=== PATIENT | female | born 1945 | race American Indian/Alaskan Native ===

== ENCOUNTER 2017-03-19 15:46 | Emergency (ER) | payer MEDICARE ==
[2017-03-19] MEDS ORDERED: NACL 0.9% 500 ML 500 ML ONE (17:30)
[2017-03-20] MEDS ORDERED: CATAPRES ONE (00:31)
[2017-03-20] MEDS: CATAPRES PO ONE (00:40)
[2017-03-20 01:44] LABS: Anion Gap 15 mmol/L; Blood Urea Nitrogen 12 mg/dL (7-17); Calcium 9.4 mg/dL (8.4-10.2); Carbon Dioxide 29 mmol/L (22-30); Glucose 103 mg/dL (65-100); Sodium 139 mmol/L (137-145)
--- NOTE | 2017-03-20 01:50 | Cat Scan Report ---
FINAL REPORT PROCEDURE: CT HEAD/BRAIN WO CON TECHNIQUE: Computerized tomography of the head was performed without contrast material. HISTORY: HTN, Dizzy, arm back pain COMPARISON: 03/15/2015 FINDINGS: Skull and scalp: Normal. Paranasal sinuses: Normal. Ventricles and subarachnoid spaces: Normal. Cerebrum: There is no evidence of acute intracranial hemorrhage, hematoma, infarction midline displacement. There is a small 7 millimeter extra-axial density in the lateral right temporal region, this has not changed significantly since prior study. A small meningioma is possible in this region.. Cerebellum and brainstem: No evidence of hemorrhage, acute infarction or mass. Vasculature: Normal. Comments: None. IMPRESSION: There is no evidence of an acute intracranial process. 7 millimeter extra-axial hyper attenuated density in the lateral right temporal region most consistent with a small meningioma, this has not changed since prior study.
[2017-03-20 01:52] LABS: INR 0.98 (0.87-1.13)
[2017-03-20 01:53] LABS: Partial Thromboplastin Time 30.7 Sec. (24.2-36.6)
[2017-03-20 02:38] LABS: Basophils % (Auto) 0.6 % (0.0-1.8); Eosinophils % (Auto) 1.5 % (0.0-4.3); Hematocrit 39.1 % (30.3-42.9); Hemoglobin 12.9 gm/dl (10.1-14.3); Mean Corpuscular HGB Conc 33 % (30-34); Mean Corpuscular Hemoglobin 29 pg (28-32); Mean Corpuscular Volume 86 fl (79-97); Platelet Count 206 K/mm3 (140-440); Red Blood Count 4.52 M/mm3 (3.65-5.03); Red Cell Distribution Width 13.8 % (13.2-15.2); White Blood Count 4.3 K/mm3 (4.5-11.0)
--- NOTE | 2017-03-20 04:18 | Emergency Department Report ---
ED Dizziness HPI - General Chief Complaint: High BP Stated Complaint: ELEVATED BP/L ARM PAIN/DIZZINESS Time Seen by Provider: 03/20/17 03:34 Source: patient Mode of arrival: Ambulatory Limitations: No Limitations - History of Present Illness Initial Comments: Vision is a 71-year-old female with a history of hypertension presenting to the ER from her PMDs office for evaluation of hypertension. Patient reports for the last 3 days her blood pressures have been running high near systolic of 200 and she reports while bowling she had a bit of unsteady gait and lightheadedness. The patient has no complaints. Patient takes Norvasc 10 mg daily and metoprolol 25 mg by mouth twice a day. No changes in medications reported. Otherwise no fevers chills nausea vomiting or visual changes hearing changes falls shortness of breath chest pain abdominal pain and travel or sick contacts. MD Complaint: lightheadedness - Related Data Previous Rx's Medication Instructions Recorded Last Taken Type amLODIPine [Norvasc] 10 mg PO DAILY #30 tab 03/16/15 08/26/16 Rx traMADol [Ultram] 50 mg PO Q4HR PRN #20 tablet 08/27/16 Unknown Rx Allergies Allergy/AdvReac Type Severity Reaction Status Date / Time Sulfa (Sulfonamide Allergy Hives Verified 03/08/15 00:53 Antibiotics) ED Review of Systems ROS: Stated complaint: ELEVATED BP/L ARM PAIN/DIZZINESS Other details as noted in HPI ED Past Medical Hx - Past Medical History Previous Medical History?: Yes Hx Hypertension: Yes Additional medical history: scleraderma. brain tumor. elevated cholesterol - Surgical History Past Surgical History?: Yes Hx Appendectomy: Yes Additional Surgical History: hysterectomy. tubal ligation. bladder tack - Social History Smoking Status: Never Smoker Substance Use Type: None - Medications Home Medications: Home Medications Medication Instructions Recorded Confirmed Last Taken Type amLODIPine [Norvasc] 10 mg PO DAILY #30 tab 03/16/15 08/27/16 08/26/16 Rx traMADol [Ultram] 50 mg PO Q4HR PRN #20 tablet 08/27/16 Unknown Rx ED Physical Exam - General Limitations: No Limitations ED Course Vital Signs 03/19/17 03/20/17 03/20/17 15:54 00:26 00:40 Temperature 98.0 F 97.9 F Pulse Rate 75 74 74 Respiratory 22 12 Rate Blood Pressure 186/116 198/131 191/126 Blood Pressure [Left] O2 Sat by Pulse 99 99 Oximetry 03/20/17 02:15 Temperature Pulse Rate 86 Respiratory 16 Rate Blood Pressure Blood Pressure 132/88 [Left] O2 Sat by Pulse 97 Oximetry ED Medical Decision Making - Lab Data Result diagrams: 03/20/17 01:10 03/20/17 01:10 - EKG Data -: EKG Interpreted by Md ([id number]) EKG shows normal: sinus rhythm, axis (normal axis), intervals (QTC 427 ms Q waves in leads V2), QRS complexes, ST-T waves (isolated T-wave inversion in lead III, no ST-T changes, no STEMI) Rate: normal (70 bpm) - Radiology Data Radiology results: report reviewed CT head: No acute intracranial process, patient has a stable 7 mm meningioma seen on prior CT. - Medical Decision Making Results discussed with patient. Patient blood pressure has stabilized on its own without intervention. Case discussed with patient she is to follow-up with her PMD for possible medication changes and further monitoring. Discussed with patient on how to maintain a BP log and to bring that to her PMD. Critical care attestation.: If time is entered above; I have spent that time in minutes in the direct care of this critically ill patient, excluding procedure time. ED Disposition Clinical Impression: Hypertension, Lightheadedness Disposition: DISCHARGED TO HOME OR SELFCARE Is pt being admited?: No Condition: Stable Instructions: Hypertension (ED) Referrals: DUSTIN HECTOR MD [Primary Care Provider] - 3-5 Days
[2017-03-20 04:27] VITALS: BP 155/89
== END 2017-03-20 04:34 | disposition home or self-care (01) ==
LOC: ED 15:46
DX: I10 Essential (primary) hypertension (principal); R42 Dizziness and giddiness
CPT/HCPCS: 36415; 70450; 80048; 84484; 85025; 85610; 85730; 93005; 93010; 99285; J7040

== ENCOUNTER 2017-06-28 13:27 | Emergency (ER) | payer MEDICARE ==
[2017-06-28 13:58] VITALS: BP 151/81
[2017-06-28 14:21] LABS: Basophils % (Auto) 0.6 % (0.0-1.8); Eosinophils % (Auto) 0.8 % (0.0-4.3); Hematocrit 36.6 % (30.3-42.9); Hemoglobin 12.4 gm/dl (10.1-14.3); Mean Corpuscular HGB Conc 34 % (30-34); Mean Corpuscular Hemoglobin 29 pg (28-32); Mean Corpuscular Volume 86 fl (79-97); Platelet Count 238 K/mm3 (140-440); Red Blood Count 4.24 M/mm3 (3.65-5.03); Red Cell Distribution Width 14.4 % (13.2-15.2); White Blood Count 6.2 K/mm3 (4.5-11.0)
--- NOTE | 2017-06-28 14:29 | XRay Report ---
CHEST 2 VIEWS INDICATION: Cough for 3 weeks. COMPARISON: 03/16/2015. FINDINGS: PA and lateral chest radiographs demonstrate normal cardiomediastinal silhouette. Clear lungs. Intact bones. CONCLUSION: No acute disease in the chest. Thank you for the opportunity to participate in this patient's care.
[2017-06-28 14:41] LABS: Anion Gap 17 mmol/L; Blood Urea Nitrogen 16 mg/dL (7-17); Calcium 9.4 mg/dL (8.4-10.2); Carbon Dioxide 29 mmol/L (22-30); Chloride 99.2 mmol/L (98-107); Glucose 110 mg/dL (65-100); Potassium 3.8 mmol/L (3.6-5.0); Sodium 141 mmol/L (137-145)
[2017-06-28 14:58] LABS: Mucus,Urine FEW /HPF
[2017-06-28 15:04] LABS: Bilirubin,Urine Negative (Negative); Blood,Urine Negative (Negative); Ketones,Urine Negative (Negative)
[2017-06-28 15:05] LABS: Leukocyte Esterase,Urine Negative (Negative); Nitrite,Urine Negative (Negative)
--- NOTE | 2017-06-30 01:05 | ED Elopement Review ---
ED Pt Elopement review - Results review Lab results: Laboratory Tests 06/28/17 06/28/17 06/28/17 14:01 14:05 14:05 WBC 6.2 RBC 4.24 Hgb 12.4 Hct 36.6 MCV 86 MCH 29 MCHC 34 RDW 14.4 Plt Count 238 Lymph % (Auto) 28.5 [place] % (Auto) 9.0 H Eos % (Auto) 0.8 Baso % (Auto) 0.6 Lymph # 1.8 [place]pson # 0.6 Eos # 0.1 Baso # 0.0 Seg Neutrophils % 61.1 Seg Neutrophils # 3.8 Sodium 141 Potassium 3.8 Chloride 99.2 Carbon Dioxide 29 Anion Gap 17 BUN 16 Creatinine 0.8 Estimated GFR > 60 BUN/Creatinine Ratio 20.00 Glucose 110 H Calcium 9.4 Urine Color Straw Urine Turbidity Hazy Urine pH 5.0 Ur Specific [place] 1.035 H Urine Protein 30 mg/dl Urine Glucose (UA) Negative Urine Ketones Negative Urine Blood Negative Urine Nitrite Negative Ur Reducing Substances Not Reportable Urine Bilirubin Negative Urine Ictotest Not Reportable Urine Urobilinogen 0.0 Ur Leukocyte Esterase Negative Urine WBC (Auto) 3.0 Urine RBC (Auto) 6.0 U Epithel Cells (Auto) 2.0 Urine Mucus Few - Call Back decision Pt Call Back Decision: No action required
== END 2017-06-28 22:15 | disposition left against medical advice (07) ==
LOC: ED 13:27
DX: R53.83 Other fatigue (principal); R50.9 Fever, unspecified; Z53.21 Procedure and treatment not carried out due to patient leaving prior to being seen by health care provider
CPT/HCPCS: 36415; 71020; 80048; 81001; 85025

== ENCOUNTER 2017-10-31 04:22 | Inpatient (IN) | payer MEDICARE, OTHER ==
--- NOTE | 2017-10-31 05:08 | XRay Report ---
FINAL REPORT EXAM: XR CHEST ROUTINE 2V HISTORY: productive cough x1 week TECHNIQUE: PA and lateral views of the chest were submitted. FINDINGS: The lungs are clear. Pleural fluid is not seen. The heart size is normal. The thoracic aorta is mildly tortuous. The bones and soft tissues do not show any acute changes. IMPRESSION: No active chest disease.
[2017-10-31 06:21] LABS: Alanine Aminotransferase 15 units/L (7-56); Albumin 4.4 g/dL (3.9-5); Albumin/Globulin Ratio 1.3 %; Alkaline Phosphatase 82 units/L (35-129); Anion Gap 16 mmol/L; BUN/Creatinine Ratio 22; Blood Urea Nitrogen 13 mg/dL (7-17); Calcium 9.3 mg/dL (8.4-10.2); Carbon Dioxide 26 mmol/L (22-30); Chloride 98.2 mmol/L (98-107); Glucose 107 mg/dL (65-100); Potassium 4.2 mmol/L (3.6-5.0); Sodium 136 mmol/L (137-145); Total Protein 7.8 g/dL (6.3-8.2)
[2017-10-31 07:12] LABS: Basophils % (Auto) 0.5 % (0.0-1.8); Eosinophils % (Auto) 1.5 % (0.0-4.3); Hematocrit 34.7 % (30.3-42.9); Hemoglobin 11.8 gm/dl (10.1-14.3); Mean Corpuscular HGB Conc 34 % (30-34); Mean Corpuscular Hemoglobin 31 pg (28-32); Mean Corpuscular Volume 91 fl (79-97); Platelet Count 199 K/mm3 (140-440); Red Blood Count 3.82 M/mm3 (3.65-5.03); Red Cell Distribution Width 13.8 % (13.2-15.2); White Blood Count 4.6 K/mm3 (4.5-11.0)
[2017-10-31] MEDS ORDERED: ATROVENT IH ONE (10:41)
[2017-10-31] MEDS ORDERED: PROVENTIL IH ONE (10:41)
[2017-10-31] MEDS ORDERED: TYLENOL PO ONE (10:41)
[2017-10-31] MEDS ORDERED: FLONASE NS ONE (10:41)
[2017-10-31] MEDS ORDERED: NACL 0.9% 500 ML 500 ML IV ONE (10:43)
--- NOTE | 2017-10-31 10:43 | Emergency Department Report ---
ED General Adult HPI - General Chief complaint: Upper Respiratory Infection Stated complaint: CHEST COLD Time Seen by Provider: 10/31/17 10:33 Source: patient, RN notes reviewed, old records reviewed Mode of arrival: Ambulatory Limitations: No Limitations - History of Present Illness Initial comments: This is a 71-year-old female. . She has a past medical history of hypertension, reports scleroderma, "brain tumor", elevated cholesterol, retention. Primary care doctor is Dr. Alvarado Patient presents to the ER with cough. Patient reports that 2 weeks ago she had some nausea, vomiting and diarrhea. This was accompanied by chest wall tightness with associated nausea and vomiting. This was going on for 2 weeks. Patient reports now facial fullness, cough, and dizziness last night. The dizziness lasted for around 3 hours. Patient reports that her dizziness was a sensation of unsteady gait and subjective ataxia. This has since resolved. It did not have exacerbating or relieving factors and It did not radiate anywhere. -: Gradual, Sudden Location: head, chest Severity scale (0 -10): 4 Quality: aching Consistency: intermittent Improves with: none Worsens with: none Associated Symptoms: confusion, chest pain, cough, headaches, loss of appetite, nausea/vomiting, shortness of breath, weakness - Related Data Previous Rx's Medication Instructions Recorded Last Taken Type amLODIPine [Norvasc] 10 mg PO DAILY #30 tab 03/16/15 08/26/16 Rx traMADol [Ultram] 50 mg PO Q4HR PRN #20 tablet 08/27/16 Unknown Rx Allergies Allergy/AdvReac Type Severity Reaction Status Date / Time Sulfa (Sulfonamide Allergy Hives Verified 10/31/17 10:46 Antibiotics) ED Review of Systems ROS: Stated complaint: CHEST COLD Other details as noted in HPI ED Past Medical Hx - Past Medical History Previous Medical History?: Yes Hx Hypertension: Yes Additional medical history: scleraderma. brain tumor. elevated cholesterol - Surgical History Past Surgical History?: Yes Hx Appendectomy: Yes Additional Surgical History: hysterectomy. tubal ligation. bladder tack - Social History Smoking Status: Never Smoker - Medications Home Medications: Home Medications Medication Instructions Recorded Confirmed Last Taken Type amLODIPine [Norvasc] 10 mg PO DAILY #30 tab 03/16/15 08/27/16 08/26/16 Rx traMADol [Ultram] 50 mg PO Q4HR PRN #20 tablet 08/27/16 Unknown Rx ED Physical Exam - General Limitations: No Limitations General appearance: alert, in no apparent distress - Head Head exam: Present: atraumatic, normocephalic - Eye Eye exam: Present: normal appearance, PERRL, EOMI, other (visual acuity intact to finger counting, color perception, reading at a close distance). Absent: nystagmus - ENT ENT exam: Present: normal exam, normal orophraynx, mucous membranes moist, TM's normal bilaterally, normal external ear exam - Neck Neck exam: Present: normal inspection, full ROM, other (there is no carotid bruit. There is no carotid thrill.). Absent: tenderness, meningismus - Respiratory Respiratory exam: Present: wheezes. Absent: respiratory distress, chest wall tenderness - Cardiovascular Cardiovascular Exam: Present: regular rate, normal rhythm, normal heart sounds. Absent: systolic murmur, diastolic murmur, rubs, gallop - GI/Abdominal GI/Abdominal exam: Present: soft, normal bowel sounds. Absent: distended, tenderness, guarding, rebound, rigid, pulsatile mass - Extremities Exam Extremities exam: Present: normal inspection, full ROM, normal capillary refill. Absent: pedal edema, joint swelling, calf tenderness - Back Exam Back exam: Present: normal inspection, full ROM. Absent: paraspinal tenderness , vertebral tenderness - Neurological Exam Neurological exam: Present: alert, oriented X3, CN II-XII intact, normal gait, other (Extraocular movements intact. Tongue midline. No facial droop. Facial sensation intact to light touch in the V1, V2, V3 distribution bilaterally. 5 and 5 strength in 4 extremities.. Sensation is intact to light touch in 4 extremities.). Absent: motor sensory deficit - Psychiatric Psychiatric exam: Present: normal affect, normal mood - Skin Skin exam: Present: warm, dry, intact, normal color. Absent: rash ED Course Vital Signs 10/31/17 10/31/17 10/31/17 04:40 08:49 09:01 Temperature 98.2 F Pulse Rate 75 72 70 Respiratory 16 16 13 Rate Blood Pressure 167/101 160/93 Blood Pressure 165/102 [Left] O2 Sat by Pulse 100 100 99 Oximetry 10/31/17 10/31/17 10/31/17 09:30 10:05 10:30 Temperature Pulse Rate 74 78 Respiratory 12 22 22 Rate Blood Pressure 158/94 158/94 141/84 Blood Pressure [Left] O2 Sat by Pulse 100 99 100 Oximetry 10/31/17 10/31/17 10/31/17 11:09 12:59 13:00 Temperature Pulse Rate 96 H Respiratory 21 Rate Blood Pressure 158/94 133/79 133/79 Blood Pressure [Left] O2 Sat by Pulse 99 99 100 Oximetry 10/31/17 13:30 Temperature Pulse Rate 87 Respiratory 14 Rate Blood Pressure 133/70 Blood Pressure [Left] O2 Sat by Pulse 100 Oximetry - Reevaluation(s) Reevaluation #1: 10/31/17 12:42 Differential diagnosis, including but not limited to labyrinthitis, rhonchi this , transient ischemic attack, pneumonia, pneumonitis, costochondritis, posterior circulation dissection Assessment and plan: 71-year-old female with subjective ataxia which has since resolved. Also reports recent cold and viral symptoms. EKG abnormal, no recent ACS risk stratification, did complain of chest pressure and tightness, currently CT angiogram not available secondary to equipment issues. Patient has a GCS of 15, with an NIH score of 0, and has no neck pain and has a normal neurologic examination. Given normal neurologic examination at this time, patient is not a TPA candidate, and furthermore given that she has normal exam, I do not believe that she requires an emergent MRI, MR angiogram of the head and neck. Patient was given albuterol Atrovent and steroids for probable bronchitis, and she will be admitted for ACS risk stratification and TIA evaluation. Noncontrast CT scan of the brain is pending. Reevaluation #2: 10/31/17 14:09 CT scan of the brain is negative. Aspirin is ordered. Wheezing improved. Case presented to the Hospital physician, Dr. Donnelly, who accepted the patient to the medical service. ED Medical Decision Making - Lab Data Result diagrams: 10/31/17 06:45 10/31/17 04:56 Vital Signs 10/31/17 10/31/17 10/31/17 04:40 08:49 09:01 Temperature 98.2 F Pulse Rate 75 72 70 Respiratory 16 16 13 Rate Blood Pressure 167/101 160/93 Blood Pressure 165/102 [Left] O2 Sat by Pulse 100 100 99 Oximetry 10/31/17 10/31/17 10/31/17 09:30 10:05 10:30 Temperature Pulse Rate 74 78 Respiratory 12 22 22 Rate Blood Pressure 158/94 158/94 141/84 Blood Pressure [Left] O2 Sat by Pulse 100 99 100 Oximetry 10/31/17 11:09 Temperature Pulse Rate Respiratory Rate Blood Pressure 158/94 Blood Pressure [Left] O2 Sat by Pulse 99 Oximetry Lab Results 10/31/17 10/31/17 Range/Units 04:56 06:45 WBC 4.6 (4.5-11.0) K/mm3 RBC 3.82 (3.65-5.03) M/mm3 Hgb 11.8 (10.1-14.3) gm/dl Hct 34.7 (30.3-42.9) % MCV 91 (79-97) fl MCH 31 (28-32) pg MCHC 34 (30-34) % RDW 13.8 (13.2-15.2) % Plt Count 199 (140-440) K/mm3 Lymph % (Auto) 34.4 (13.4-35.0) % [place] % (Auto) 9.7 H (0.0-7.3) % Eos % (Auto) 1.5 (0.0-4.3) % Baso % (Auto) 0.5 (0.0-1.8) % Lymph # 1.6 (1.2-5.4) K/mm3 [place] # 0.4 (0.0-0.8) K/mm3 Eos # 0.1 (0.0-0.4) K/mm3 Baso # 0.0 (0.0-0.1) K/mm3 Seg Neutrophils % 53.9 (40.0-70.0) % Seg Neutrophils # 2.5 (1.8-7.7) K/mm3 Sodium 136 L (137-145) mmol/L Potassium 4.2 (3.6-5.0) mmol/L Chloride 98.2 (98-107) mmol/L Carbon Dioxide 26 (22-30) mmol/L Anion Gap 16 mmol/L BUN 13 (7-17) mg/dL Creatinine 0.6 L (0.7-1.2) mg/dL Estimated GFR > 60 ml/min BUN/Creatinine Ratio 22 % Glucose 107 H (65-100) mg/dL Calcium 9.3 (8.4-10.2) mg/dL Total Bilirubin 0.50 (0.1-1.2) mg/dL AST 21 (5-40) units/L ALT 15 (7-56) units/L Alkaline Phosphatase 82 (35-129) units/L Troponin T < 0.010 (0.00-0.029) ng/mL Total Protein 7.8 (6.3-8.2) g/dL Albumin 4.4 (3.9-5) g/dL Albumin/Globulin Ratio 1.3 % - EKG Data 10/31/17 12:47 Normal sinus, 73 bpm, normal axis, normal intervals, T-wave inversions in lead 3 , poor R-wave progression, abnormal EKG, unchanged from prior from March 2017. - Radiology Data Radiology results: report reviewed, image reviewed interpreted by me: X-ray of the chest is negative Critical care attestation.: If time is entered above; I have spent that time in minutes in the direct care of this critically ill patient, excluding procedure time. ED Disposition Clinical Impression: Chest pain, Ataxia, Bronchitis Disposition: OP ADMIT IP TO THIS HOSP Is pt being admited?: Yes Does the pt Need Aspirin: Yes Condition: Good Instructions: Chest Pain (ED), Chronic Bronchitis (ED) Referrals: JORGE MARQUIS MD [Primary Care Provider] - 3-5 Days
--- NOTE | 2017-10-31 14:00 | Cat Scan Report ---
CT HEAD WITHOUT CONTRAST: HISTORY: Resolved dizziness. Serial contiguous axial images were obtained through the cranium. Intravenous contrast material was not administered. The ventricles are normal in size and appearance. There is no mass effect or midline shift. No areas of abnormally increased or decreased attenuation are seen. No mass lesion is seen. Large mucus retention cyst in the left maxillary sinus and mild mucosal thickening in the left sphenoid sinus are noted. The remaining sinuses and mastoid air cells are clear. IMPRESSION: Cranial CT scan within normal limits. Sinus disease as described, chronic.
[2017-10-31] MEDS ORDERED: BABY ASPIRIN PO ONE (14:09)
[2017-10-31] MEDS ORDERED: ULTRAM PO PRN (15:15)
--- NOTE | 2017-10-31 15:15 | History and Physical Report ---
History of Present Illness Date of examination: 10/31/17 Date of admission: 10/31/17 Chief complaint: CC Chest tightness 1 wek History of present illness: LAC DU FLAMBE[place] 71 y/o female presents to the ER with cough accompanied by chest wall tightness with associated nausea and vomiting. This was going on for 2 weeks. Patient reports now facial fullness, cough, and dizziness last night. The dizziness lasted for around 3 hours. Patient reports that her dizziness was a sensation of unsteady gait and subjective ataxia. This has since resolved. It did not have exacerbating or relieving factors and It did not radiate anywhere. Past Medical History Previous Medical History?: Yes Hx Hypertension: Yes Additional medical history: scleraderma. brain tumor. elevated cholesterol Surgical History Past Surgical History?: Yes Hx Appendectomy: Yes Additional Surgical History: hysterectomy. tubal ligation. bladder tack Social History Smoking Status: Never Smoker Medications Home Medications: Home Medications Medication Instructions Recorded Confirmed Last Taken Type amLODIPine [Norvasc] 10 mg PO DAILY #30 tab 03/16/15 08/27/16 08/26/16 Rx traMADol [Ultram] 50 mg PO Q4HR PRN #20 tablet 08/27/16 Unknown Rx ROS: Stated complaint: CHEST COLD Other details as noted in HPI Medications and Allergies Allergies Allergy/AdvReac Type Severity Reaction Status Date / Time Sulfa (Sulfonamide Allergy Hives Verified 10/31/17 10:46 Antibiotics) Home Medications Medication Instructions Recorded Confirmed Last Taken Type amLODIPine [Norvasc] 10 mg PO DAILY #30 tab 03/16/15 10/31/17 10/30/17 Rx guaiFENesin ER [Mucinex ER] 600 mg PO Q12H 10/31/17 10/31/17 10/30/17 History Exam - Constitutional Vitals: Temp Pulse Resp BP Pulse Ox 98.2 F 96 H 15 124/103 100 10/31/17 04:40 10/31/17 14:30 10/31/17 14:30 10/31/17 14:30 10/31/17 14:30 General appearance: Present: no acute distress, well-nourished - EENT Eyes: Present: PERRL ENT: hearing intact, clear oral mucosa - Neck Neck: Present: supple, normal ROM - Respiratory Respiratory effort: normal Respiratory: bilateral: CTA - Cardiovascular Heart rate: 80 Rhythm: regular Heart Sounds: Present: S1 & S2. Absent: rub, click - Extremities Extremities: no ischemia, pulses intact, pulses symmetrical, No edema Peripheral Pulses: within normal limits - Abdominal General gastrointestinal: Present: soft, non-tender, non-distended, normal bowel sounds Female genitourinary: Present: normal - Rectal Rectal Exam: deferred - Integumentary Integumentary: Present: clear, warm, dry - Musculoskeletal Musculoskeletal: gait normal, strength equal bilaterally - Psychiatric Psychiatric: appropriate mood/affect, intact judgment & insight - Neurologic Neurologic: CNII-XII intact, moves all extremities - Allied Health Allied health notes reviewed: nursing Results - Labs CBC & Chem 7: 10/31/17 06:45 10/31/17 04:56 Labs: Laboratory Last Values WBC 4.6 K/mm3 (4.5-11.0) 10/31/17 06:45 RBC 3.82 M/mm3 (3.65-5.03) 10/31/17 06:45 Hgb 11.8 gm/dl (10.1-14.3) 10/31/17 06:45 Hct 34.7 % (30.3-42.9) 10/31/17 06:45 MCV 91 fl (79-97) 10/31/17 06:45 MCH 31 pg (28-32) 10/31/17 06:45 MCHC 34 % (30-34) 10/31/17 06:45 RDW 13.8 % (13.2-15.2) 10/31/17 06:45 Plt Count 199 K/mm3 (140-440) 10/31/17 06:45 Lymph % (Auto) 34.4 % (13.4-35.0) 10/31/17 06:45 [place] % (Auto) 9.7 % (0.0-7.3) H 10/31/17 06:45 Eos % (Auto) 1.5 % (0.0-4.3) 10/31/17 06:45 Baso % (Auto) 0.5 % (0.0-1.8) 10/31/17 06:45 Lymph # 1.6 K/mm3 (1.2-5.4) 10/31/17 06:45 [place] # 0.4 K/mm3 (0.0-0.8) 10/31/17 06:45 Eos # 0.1 K/mm3 (0.0-0.4) 10/31/17 06:45 Baso # 0.0 K/mm3 (0.0-0.1) 10/31/17 06:45 Seg Neutrophils % 53.9 % (40.0-70.0) 10/31/17 06:45 Seg Neutrophils # 2.5 K/mm3 (1.8-7.7) 10/31/17 06:45 Sodium 136 mmol/L (137-145) L 10/31/17 04:56 Potassium 4.2 mmol/L (3.6-5.0) 10/31/17 04:56 Chloride 98.2 mmol/L (98-107) 10/31/17 04:56 Carbon Dioxide 26 mmol/L (22-30) 10/31/17 04:56 Anion Gap 16 mmol/L 10/31/17 04:56 BUN 13 mg/dL (7-17) 10/31/17 04:56 Creatinine 0.6 mg/dL (0.7-1.2) L 10/31/17 04:56 Estimated GFR > 60 ml/min 10/31/17 04:56 BUN/Creatinine Ratio 22 % 10/31/17 04:56 Glucose 107 mg/dL (65-100) H 10/31/17 04:56 Calcium 9.3 mg/dL (8.4-10.2) 10/31/17 04:56 Total Bilirubin 0.50 mg/dL (0.1-1.2) 10/31/17 04:56 AST 21 units/L (5-40) 10/31/17 04:56 ALT 15 units/L (7-56) 10/31/17 04:56 Alkaline Phosphatase 82 units/L (35-129) 10/31/17 04:56 Troponin T < 0.010 ng/mL (0.00-0.029) 10/31/17 04:56 Total Protein 7.8 g/dL (6.3-8.2) 10/31/17 04:56 Albumin 4.4 g/dL (3.9-5) 10/31/17 04:56 Albumin/Globulin Ratio 1.3 % 10/31/17 04:56 - Imaging and Cardiology EKG: report reviewed Assessment and Plan Advance Directives: Yes (Full code) VTE prophylaxis?: Chemical Plan of care discussed with patient/family: Yes - Patient Problems (1) Ataxia Current Visit: Yes Status: Acute (2) Chest pain Current Visit: Yes Status: Acute Qualifiers: Chest pain type: unspecified Qualified Code(s): R07.9 - Chest pain, unspecified Plan to address problem: Serial cardiac enzymes and Lexiscan on Nov 02 (3) TIA (transient ischemic attack) Current Visit: Yes Status: Acute Qualifiers: Transient cerebral ischemia type: unspecified Qualified Code(s): G45.9 - Transient cerebral ischemic attack, unspecified Plan to address problem: TIA w/u CDS and MRI (4) HTN (hypertension) Current Visit: Yes Status: Chronic Qualifiers: Hypertension type: essential hypertension Qualified Code(s): I10 - Essential (primary) hypertension Plan to address problem: Cont Amlodipine (5) Bronchitis Current Visit: Yes Status: Acute Plan to address problem: Agatha abx and po prednisone (6) DVT prophylaxis Current Visit: Yes Status: Acute Plan to address problem: On Lovenox
[2017-10-31] MEDS ORDERED: DULCOLAX PR PRN (15:17)
[2017-10-31] MEDS ORDERED: TYLENOL PO PRN (15:17)
[2017-10-31] MEDS ORDERED: ZOFRAN IV PRN (15:17)
[2017-10-31] MEDS ORDERED: MILK OF MAGNESIA PO PRN (15:17)
[2017-10-31] MEDS: NORVASC PO SCH (17:33)
[2017-10-31 18:08] LABS: Creatine Kinase MB 2.5 ng/mL (0.0-4.0)
[2017-10-31 18:10] LABS: Creatine Kinase 293 units/L (30-135)
[2017-10-31 21:15] LABS: Creatine Kinase MB 2.3 ng/mL (0.0-4.0)
[2017-10-31 21:17] LABS: Creatine Kinase 265 units/L (30-135)
[2017-11-01 03:49] LABS: Creatine Kinase 281 units/L (30-135); Creatine Kinase MB 3.1 ng/mL (0.0-4.0)
--- NOTE | 2017-11-01 08:21 | Progress Note ---
Hospitalist Physical - Constitutional Vitals: Temp Pulse Resp BP Pulse Ox 98.5 F 85 20 150/84 96 11/01/17 04:33 11/01/17 04:34 11/01/17 04:33 11/01/17 04:33 11/01/17 04:34 Results - Labs CBC & Chem 7: 10/31/17 06:45 10/31/17 04:56 Labs: Laboratory Last Values WBC 4.6 K/mm3 (4.5-11.0) 10/31/17 06:45 RBC 3.82 M/mm3 (3.65-5.03) 10/31/17 06:45 Hgb 11.8 gm/dl (10.1-14.3) 10/31/17 06:45 Hct 34.7 % (30.3-42.9) 10/31/17 06:45 MCV 91 fl (79-97) 10/31/17 06:45 MCH 31 pg (28-32) 10/31/17 06:45 MCHC 34 % (30-34) 10/31/17 06:45 RDW 13.8 % (13.2-15.2) 10/31/17 06:45 Plt Count 199 K/mm3 (140-440) 10/31/17 06:45 Lymph % (Auto) 34.4 % (13.4-35.0) 10/31/17 06:45 [place] % (Auto) 9.7 % (0.0-7.3) H 10/31/17 06:45 Eos % (Auto) 1.5 % (0.0-4.3) 10/31/17 06:45 Baso % (Auto) 0.5 % (0.0-1.8) 10/31/17 06:45 Lymph # 1.6 K/mm3 (1.2-5.4) 10/31/17 06:45 [place] # 0.4 K/mm3 (0.0-0.8) 10/31/17 06:45 Eos # 0.1 K/mm3 (0.0-0.4) 10/31/17 06:45 Baso # 0.0 K/mm3 (0.0-0.1) 10/31/17 06:45 Seg Neutrophils % 53.9 % (40.0-70.0) 10/31/17 06:45 Seg Neutrophils # 2.5 K/mm3 (1.8-7.7) 10/31/17 06:45 Sodium 136 mmol/L (137-145) L 10/31/17 04:56 Potassium 4.2 mmol/L (3.6-5.0) 10/31/17 04:56 Chloride 98.2 mmol/L (98-107) 10/31/17 04:56 Carbon Dioxide 26 mmol/L (22-30) 10/31/17 04:56 Anion Gap 16 mmol/L 10/31/17 04:56 BUN 13 mg/dL (7-17) 10/31/17 04:56 Creatinine 0.6 mg/dL (0.7-1.2) L 10/31/17 04:56 Estimated GFR > 60 ml/min 10/31/17 04:56 BUN/Creatinine Ratio 22 % 10/31/17 04:56 Glucose 107 mg/dL (65-100) H 10/31/17 04:56 Calcium 9.3 mg/dL (8.4-10.2) 10/31/17 04:56 Total Bilirubin 0.50 mg/dL (0.1-1.2) 10/31/17 04:56 AST 21 units/L (5-40) 10/31/17 04:56 ALT 15 units/L (7-56) 10/31/17 04:56 Alkaline Phosphatase 82 units/L (35-129) 10/31/17 04:56 Total Creatine Kinase 281 units/L (30-135) H 11/01/17 03:12 CK-MB (CK-2) 3.1 ng/mL (0.0-4.0) 11/01/17 03:12 CK-MB (CK-2) Rel Index 1.1 (0-4) 11/01/17 03:12 Troponin T < 0.010 ng/mL (0.00-0.029) 11/01/17 03:12 Total Protein 7.8 g/dL (6.3-8.2) 10/31/17 04:56 Albumin 4.4 g/dL (3.9-5) 10/31/17 04:56 Albumin/Globulin Ratio 1.3 % 10/31/17 04:56
--- NOTE | 2017-11-01 08:31 | Progress Note ---
<JAYLIN GRADY - Last Filed: 11/01/17 13:34> Assessment and Plan Assessment and plan: Patient is a 71 years old female presents to the ER with cough accompanied by chest wall tightness with associated nausea and vomiting. Chest pain EKG normal sinus, no ST elevation or T-wave inversion. Negative cardiac enzyme X3 Start on aspirin Nitroglycerin when necessary Morphine ordered for pain Stress test taken awaiting for the findings Transient ischemic attack CT of the head no acute intracranial process VL Carotid duplex bilateral no evidence of stenosis Hypertension Continue on home antihypertensive pills IV Hyralazine for SBP >160 Closely monitor BP Bronchitis Started on oral azithromycin and oral prednisone Started on guaifenesin oxygen as needed Supportive care Ataxia Resolved DVT prophylaxis On Lovenox History Interval history: Patient denies having chest pain, shortness of breath. She reported coughing with yellow sputum Hospitalist Physical - Constitutional Vitals: Temp Pulse Resp BP Pulse Ox 98.5 F 85 20 150/84 96 11/01/17 04:33 11/01/17 04:34 11/01/17 04:33 11/01/17 04:33 11/01/17 04:34 General appearance: Present: no acute distress - EENT Eyes: Present: PERRL ENT: hearing intact - Neck Neck: Present: supple - Respiratory Respiratory effort: normal Respiratory: bilateral: CTA - Cardiovascular Rhythm: regular Heart Sounds: Present: S1 & S2 - Abdominal General gastrointestinal: soft, non-tender - Integumentary Integumentary: Present: clear, warm, dry - Psychiatric Psychiatric: appropriate mood/affect - Neurologic Neurologic: moves all extremities - Allied Health Allied health notes reviewed: nursing Results - Labs CBC & Chem 7: 10/31/17 06:45 10/31/17 04:56 Labs: Laboratory Last Values WBC 4.6 K/mm3 (4.5-11.0) 10/31/17 06:45 RBC 3.82 M/mm3 (3.65-5.03) 10/31/17 06:45 Hgb 11.8 gm/dl (10.1-14.3) 10/31/17 06:45 Hct 34.7 % (30.3-42.9) 10/31/17 06:45 MCV 91 fl (79-97) 10/31/17 06:45 MCH 31 pg (28-32) 10/31/17 06:45 MCHC 34 % (30-34) 10/31/17 06:45 RDW 13.8 % (13.2-15.2) 10/31/17 06:45 Plt Count 199 K/mm3 (140-440) 10/31/17 06:45 Lymph % (Auto) 34.4 % (13.4-35.0) 10/31/17 06:45 [place] % (Auto) 9.7 % (0.0-7.3) H 10/31/17 06:45 Eos % (Auto) 1.5 % (0.0-4.3) 10/31/17 06:45 Baso % (Auto) 0.5 % (0.0-1.8) 10/31/17 06:45 Lymph # 1.6 K/mm3 (1.2-5.4) 10/31/17 06:45 [place] # 0.4 K/mm3 (0.0-0.8) 10/31/17 06:45 Eos # 0.1 K/mm3 (0.0-0.4) 10/31/17 06:45 Baso # 0.0 K/mm3 (0.0-0.1) 10/31/17 06:45 Seg Neutrophils % 53.9 % (40.0-70.0) 10/31/17 06:45 Seg Neutrophils # 2.5 K/mm3 (1.8-7.7) 10/31/17 06:45 Sodium 136 mmol/L (137-145) L 10/31/17 04:56 Potassium 4.2 mmol/L (3.6-5.0) 10/31/17 04:56 Chloride 98.2 mmol/L (98-107) 10/31/17 04:56 Carbon Dioxide 26 mmol/L (22-30) 10/31/17 04:56 Anion Gap 16 mmol/L 10/31/17 04:56 BUN 13 mg/dL (7-17) 10/31/17 04:56 Creatinine 0.6 mg/dL (0.7-1.2) L 10/31/17 04:56 Estimated GFR > 60 ml/min 10/31/17 04:56 BUN/Creatinine Ratio 22 % 10/31/17 04:56 Glucose 107 mg/dL (65-100) H 10/31/17 04:56 Calcium 9.3 mg/dL (8.4-10.2) 10/31/17 04:56 Total Bilirubin 0.50 mg/dL (0.1-1.2) 10/31/17 04:56 AST 21 units/L (5-40) 10/31/17 04:56 ALT 15 units/L (7-56) 10/31/17 04:56 Alkaline Phosphatase 82 units/L (35-129) 10/31/17 04:56 Total Creatine Kinase 281 units/L (30-135) H 11/01/17 03:12 CK-MB (CK-2) 3.1 ng/mL (0.0-4.0) 11/01/17 03:12 CK-MB (CK-2) Rel Index 1.1 (0-4) 11/01/17 03:12 Troponin T < 0.010 ng/mL (0.00-0.029) 11/01/17 03:12 Total Protein 7.8 g/dL (6.3-8.2) 10/31/17 04:56 Albumin 4.4 g/dL (3.9-5) 10/31/17 04:56 Albumin/Globulin Ratio 1.3 % 10/31/17 04:56 <ANNETTE COLBY - Last Filed: 11/11/17 07:19> Hospitalist Physical - Constitutional Vitals: Temp Pulse Resp BP Pulse Ox 97.9 F 81 20 157/92 96 11/01/17 12:20 11/01/17 14:33 11/01/17 12:20 11/01/17 14:33 11/01/17 12:20 Results - Labs CBC & Chem 7: 10/31/17 06:45 10/31/17 04:56 Labs: Laboratory Last Values WBC 4.6 K/mm3 (4.5-11.0) 10/31/17 06:45 RBC 3.82 M/mm3 (3.65-5.03) 10/31/17 06:45 Hgb 11.8 gm/dl (10.1-14.3) 10/31/17 06:45 Hct 34.7 % (30.3-42.9) 10/31/17 06:45 MCV 91 fl (79-97) 10/31/17 06:45 MCH 31 pg (28-32) 10/31/17 06:45 MCHC 34 % (30-34) 10/31/17 06:45 RDW 13.8 % (13.2-15.2) 10/31/17 06:45 Plt Count 199 K/mm3 (140-440) 10/31/17 06:45 Lymph % (Auto) 34.4 % (13.4-35.0) 10/31/17 06:45 [place] % (Auto) 9.7 % (0.0-7.3) H 10/31/17 06:45 Eos % (Auto) 1.5 % (0.0-4.3) 10/31/17 06:45 Baso % (Auto) 0.5 % (0.0-1.8) 10/31/17 06:45 Lymph # 1.6 K/mm3 (1.2-5.4) 10/31/17 06:45 [place] # 0.4 K/mm3 (0.0-0.8) 10/31/17 06:45 Eos # 0.1 K/mm3 (0.0-0.4) 10/31/17 06:45 Baso # 0.0 K/mm3 (0.0-0.1) 10/31/17 06:45 Seg Neutrophils % 53.9 % (40.0-70.0) 10/31/17 06:45 Seg Neutrophils # 2.5 K/mm3 (1.8-7.7) 10/31/17 06:45 Sodium 136 mmol/L (137-145) L 10/31/17 04:56 Potassium 4.2 mmol/L (3.6-5.0) 10/31/17 04:56 Chloride 98.2 mmol/L (98-107) 10/31/17 04:56 Carbon Dioxide 26 mmol/L (22-30) 10/31/17 04:56 Anion Gap 16 mmol/L 10/31/17 04:56 BUN 13 mg/dL (7-17) 10/31/17 04:56 Creatinine 0.6 mg/dL (0.7-1.2) L 10/31/17 04:56 Estimated GFR > 60 ml/min 10/31/17 04:56 BUN/Creatinine Ratio 22 % 10/31/17 04:56 Glucose 107 mg/dL (65-100) H 10/31/17 04:56 Calcium 9.3 mg/dL (8.4-10.2) 10/31/17 04:56 Total Bilirubin 0.50 mg/dL (0.1-1.2) 10/31/17 04:56 AST 21 units/L (5-40) 10/31/17 04:56 ALT 15 units/L (7-56) 10/31/17 04:56 Alkaline Phosphatase 82 units/L (35-129) 10/31/17 04:56 Total Creatine Kinase 389 units/L (30-135) H 11/01/17 14:15 CK-MB (CK-2) 4.5 ng/mL (0.0-4.0) H 11/01/17 14:15 CK-MB (CK-2) Rel Index 1.1 (0-4) 11/01/17 14:15 Troponin T < 0.010 ng/mL (0.00-0.029) 11/01/17 14:15 Total Protein 7.8 g/dL (6.3-8.2) 10/31/17 04:56 Albumin 4.4 g/dL (3.9-5) 10/31/17 04:56 Albumin/Globulin Ratio 1.3 % 10/31/17 04:56
[2017-11-01 09:47] LABS: Creatine Kinase MB 3.8 ng/mL (0.0-4.0)
[2017-11-01 09:49] LABS: Creatine Kinase 315 units/L (30-135)
[2017-11-01] MEDS ORDERED: MUCINEX ER PO SCH (10:00)
[2017-11-01] MEDS ORDERED: LEXISCAN IV ONE ×2 (11:24→14:11)
[2017-11-01] MEDS ORDERED: ATIVAN IV ONE (13:30)
--- NOTE | 2017-11-01 13:39 | Treadmill Report ---
NUCLEAR STRESS TEST DESCRIPTION OF PROCEDURE: The patient is brought to the Cardiology lab and a Lexiscan stress test is performed. The patient tolerated the procedure well. Post-stress images reveal homogeneous distribution of isotope with no significant reversibility to indicate ischemia. Accompanying gated study shows good systolic function with no significant wall motion abnormalities. IMPRESSION: Nuclear stress study shows no significant reversible defects to indicate ischemia. Accompanying gated study shows good systolic function with no wall motion abnormalities. Calculated ejection fraction is 70%. JOB# [id number] KB/NTS
--- NOTE | 2017-11-01 14:14 | Magnetic Resonance Report ---
MRI OF THE BRAIN WITHOUT CONTRAST: HISTORY: Transient ataxia PROCEDURE: Multiplanar, multisequence MR imaging of the brain without IV contrast was performed. FINDINGS: Mild nonspecific chronic white matter changes are identified bilaterally which appear appropriate for this patient's age. Otherwise, the brain parenchyma signal intensity and its [place] white interface are within normal limits on all sequences. No evidence for acute ischemia, hemorrhage or mass. No chronic infarct or extra-axial fluid collection. The midline structures are central. The basal cisterns are patent. Normal ventricular size. The orbital cavities and sella turcica demonstrate no abnormality. 3 cm mucous retention cyst is identified in the left maxillary sinus. There is moderate mucosal thickening throughout the left sphenoid sinus. The remaining sinuses and mastoid air cells are clear. IMPRESSION: Mild nonspecific chronic white matter changes. No acute intracranial process identified. Chronic sinus disease.
[2017-11-01] MEDS: NORVASC PO SCH (14:33)
[2017-11-01 14:35] VITALS: BP 157/92
[2017-11-01 15:14] LABS: Creatine Kinase MB 4.5 ng/mL (0.0-4.0)
[2017-11-01 15:15] LABS: Creatine Kinase 389 units/L (30-135)
--- NOTE | 2017-11-01 16:35 | Discharge Summary ---
Providers - Providers Date of Admission: 10/31/17 14:46 Date of discharge: 11/01/17 Attending physician: ANNETTE COLBY 11/01/17 13:29 Consult to Physician [CONS] Routine Consulting Provider: JD WALL Reason For Exam: TIA Place consult to:: yes Phone number called:: yes Primary care physician: JORGE MARQUIS Hospitalization Condition: Good Disposition: DC-01 TO HOME OR SELFCARE Time spent for discharge: 32 min Core Measure Documentation - Palliative Care Palliative Care/ Comfort Measures: Not Applicable - Core Measures Any of the following diagnoses?: none Exam - Constitutional Vitals: Temp Pulse Resp BP Pulse Ox 97.9 F 81 20 157/92 96 11/01/17 12:20 11/01/17 14:33 11/01/17 12:20 11/01/17 14:33 11/01/17 12:20 General appearance: Present: no acute distress, well-nourished - EENT Eyes: Present: PERRL, EOM intact - Neck Neck: Present: supple, normal ROM - Respiratory Respiratory effort: normal Respiratory: bilateral: diminished, negative: rales, rhonchi, wheezing - Cardiovascular Rhythm: regular Heart Sounds: Present: S1 & S2 - Extremities Extremities: no ischemia, No edema - Abdominal General gastrointestinal: Present: soft, non-tender, non-distended, normal bowel sounds - Integumentary Integumentary: Present: clear, warm - Musculoskeletal Musculoskeletal: strength equal bilaterally - Psychiatric Psychiatric: appropriate mood/affect, cooperative - Neurologic Neurologic: CNII-XII intact, moves all extremities Plan Activity: no restrictions Diet: low salt Additional Instructions: Chest pain or shortness of breath, contact M.D. or go to emergency room. Advised to see pain clinic for pain management. Advised diet modification, exercise as tolerated and weight reduction Follow up with: JORGE MARQUIS MD [Primary Care Provider] - 3-5 Days
--- NOTE | 2017-11-01 23:38 | Discharge Summary ---
<JEJAYLIN Anderson - Last Filed: 11/04/17 16:04> Providers - Providers Date of Admission: 10/31/17 14:46 Date of discharge: 11/04/17 Attending physician: ANNETTE COLBY 11/01/17 13:29 Consult to Physician [CONS] Routine Consulting Provider: JD WALL Reason For Exam: TIA Place consult to:: yes Phone number called:: yes Primary care physician: JORGE MARQUIS Hospitalization Reason for admission: Chest pain Condition: Good Hospital course: Patient is a 71 years old female who presents to the ER with cough accompanied by chest wall tightness with associated nausea and vomiting. Patient was diagnosed with chest pain, Transient ischemic attack, Hypertension, Bronchitis and Ataxia.Patient presented with atypical chest pain, ACS was ruled out, stress test normal MPI, negative cardiac enzymes, ECGs shows normal sinus rythm, CXR WNL. Patient chest pain probably from Bronchitis. stroke was rule out CT of the head no acute intracranial process. VL Carotid duplex bilateral no evidence of stenosis. She was treated with supplemental oxygen, aggressive nebulizer therapy, oral steroids and antibiotics for bronchitis. She is being discharged on oral antibiotic. Also D/C with oral steroid taper upon discharge. She was treated with IV fluid hydration and antihypertensive medications. Patient is clinically improved and no chest pain at present time. Patient advised to follow-up with her primary care provider. Discharge Diagnosed Chest pain due to Bronchitis Transient ischemic attack Hypertension Bronchitis Ataxia Disposition: TO HOME OR SELFCARE Time spent for discharge: 33 minutes Core Measure Documentation - Palliative Care Palliative Care/ Comfort Measures: Not Applicable - Core Measures Any of the following diagnoses?: none Exam - Constitutional Vitals: Temp Pulse Resp BP Pulse Ox 97.9 F 81 20 157/92 96 11/01/17 12:20 11/01/17 14:33 11/01/17 12:20 11/01/17 14:33 11/01/17 12:20 General appearance: Present: no acute distress - EENT Eyes: Present: PERRL ENT: hearing intact - Neck Neck: Present: supple - Respiratory Respiratory effort: normal Respiratory: bilateral: CTA - Cardiovascular Rhythm: regular Heart Sounds: Present: S1 & S2 - Abdominal General gastrointestinal: Present: soft, non-tender Female genitourinary: Present: deferred - Rectal Rectal Exam: deferred - Integumentary Integumentary: Present: clear, warm, dry - Musculoskeletal Musculoskeletal: strength equal bilaterally - Psychiatric Psychiatric: appropriate mood/affect - Neurologic Neurologic: moves all extremities - Allied Health Allied health notes reviewed: nursing Plan Diet: low fat, low cholesterol, low salt Follow up with: JORGE MARQUIS MD [Primary Care Provider] - 3-5 Days Prescriptions: oxyCODONE /ACETAMINOPHEN [Percocet 5/325] 1 tab PO QHS PRN #7 tablet PRN Reason: Pain Azithromycin [Zithromax Z-KYLIE] 0 mg PO DAILY #1 tab Prednisone 10 mg PO DAILY #10 tab.ds.pk <ANNETTE COLBY - Last Filed: 11/11/17 07:22> Providers - Providers Date of Admission: 10/31/17 14:46 Attending physician: ANNETTE COLBY 11/01/17 13:29 Consult to Physician [CONS] Routine Consulting Provider: JD WALL Reason For Exam: TIA Place consult to:: yes Phone number called:: yes Primary care physician: JORGE MARQUIS Hospitalization Hospital course: I saw and evaluated the patient. I agree with the findings and the plan of care as documented in the Nurse Practitioner's~note, with the following corrections and additions. Exam - Constitutional Vitals: Temp Pulse Resp BP Pulse Ox 97.9 F 81 20 157/92 96 11/01/17 12:20 11/01/17 14:33 11/01/17 12:20 11/01/17 14:33 11/01/17 12:20
[2017-11-02] MEDS ORDERED: ZITHROMAX PO SCH (10:00)
[2017-11-02] MEDS ORDERED: DELTASONE PO SCH (10:00)
--- NOTE | 2017-11-07 08:04 | Vascular Lab Report ---
CAROTID DUPLEX STUDY: RIGHT PSVEDV CCA PROX:9714 CCA DIST:[id number] ICA PROX:4514 ICA MID:6121 ICA DIST:6422 ECA: 88 VERT: 36 12 LEFT PSVEDV CCA PROX:7815 CCA DIST:7915 ICA PROX:4616 ICA MID:7123 ICA DIST:7830 ECA: 72 VERT: 47 15 REASON FOR EXAM: Carotid artery stenosis/dizziness. COMMENTS ON THE RIGHT: Doppler frequency analysis is consistent with 16 to 49 percent diameter reduction of the internal carotid artery. Minimal amount of plaque is seen. The common carotid artery is patent. The external carotid artery is patent. The vertebral artery has antegrade flow. COMMENTS ON THE LEFT: Doppler frequency analysis is consistent with 16 to 49 percent diameter reduction of the internal carotid artery. Minimal amount of plaque is seen. The common carotid artery is patent. The external carotid artery is patent. The vertebral artery has antegrade flow. IMPRESSION: Less than 50% diameter reduction in the internal carotid arteries bilaterally. Consider repeat carotid artery duplex in 12 months.
--- NOTE | 2017-11-28 10:54 | Query- General ---
Linda Sales Ruiz Date:____11/28/17 Survey Worker/CDS:____Augieit Phone#:___[phone] Exercise your independent professional judgment when responding to this query. Questions asked do not imply a particular answer is desired or expected. We greatly appreciate your clarification on this issue. Clinical Documentation States: 71 year old female was admitted on 10/31/17 The discharge summary (Dr. morrison) states " Patient is a 71 years old female who presents to the ER with cough accompanied by chest wall tightness with associated nausea and vomiting. " Clinical Findings Show (include reference to source document): BMI: 42.3 Given the above clinical scenario can you please provide an appropriate diagnosis based on your knowledge of the patient: PHYSICIAN RESPONSE: [ ] Obesity [ x ] Morbid obesity [ ] Other (Please specify) [ ] Clinically undeterminable Present on Admission: [x ] Yes (Y) [ ] Clinically undeterminable (W) [ ]No(N) Please also document response in your Progress Notes and/or Discharge Summary and indicate if the condition was present on admission. MTDD
--- NOTE | 2017-11-28 10:57 | Query-Infection ---
Deakurt Sales Ruiz Date:___11/28/17 Air Purifier Servicer/CDS:____Marcos Phone#:___[phone] Exercise your independent professional judgment when responding to this query. Questions asked do not imply a particular answer is desired or expected. We greatly appreciate your clarification on this issue. Clinical Documentation States: 71 year old female was admitted on 10/31/17 The discharge summary (Dr. Melchor) states " Patient is a 71 years old female who presents to the ER with cough accompanied by chest wall tightness with associated nausea and vomiting.She was treated with supplemental oxygen, aggressive nebulizer therapy, oral steroids and antibiotics for bronchitis Discharge Diagnosed Chest pain due to Bronchitis Bronchitis " Pulse rate: 101 Respiratory rate: 22 Clinical findings show: (please check applicable parameters) Infection, known /suspected, with some of the following indicators; Specify the infection: 3 General parameters [ ] Fever (core temp >38.30C or 100.40F) [ ] Hypothermia (core temp <36C) [ x] Heart rate >90 bpm [ x] Tachypnea: >20 bpm or pCO2 < 32 mmHg [ ] Altered mental status [ ] Significant edema / +ve fluid balance (>20 ml/kg 24 h) [ ] Hyperglycemia (Bl. glucose >110 mg/dl) w/o diabetes Inflammatory parameters [ ] Leukocytosis (white blood cell count >12,000/l) [ ] Leukopenia (white blood cell count <4,000/l) [ ] Bandemia (immature WBC > 10%) [ ] Leucocyte Left Shift [ ] Plasma procalcitonin>2 SD above the normal value Hemodynamic and tissue perfusion parameters [ ] Arterial hypotension(SBP <90 mmHg, MAP <70 mmHg,or a SBP drop >40 mmHg in adults) [ ] Hyperlactatemia (>3 mmol/l) [ ] Anion Gap (> 11mEG/l) [ ] Decreased capillary refill or mottling Organ dysfunction parameters [ ] Arterial hypoxemia (PaO2/FIO2 <300) [ ] Creatinine increase =0.5 mg/dl [ ] Acute oliguria (urine output <0.5 ml | kg |h or 45 mM/l for at least 2 hrs) [ ] Coagulation abnormalities (INR >1.5 or activated partial thromboplastin time >60 s) [ ] Ileus (absent tyrese wel sounds) [ ] Thrombocytopenia (platelet count <100,000/l) [ ] Hyperbilirubinemia (plasma total bilirubin >4 mg/dl) According to the clinical indications above, can Bacteremia be further specified? If so, please indicate below and in your Progress Notes and/ or Discharge Summary. Indicate if the condition was present on admission. PHYSICIAN RESPONSE: [ ] Sepsis [ ] Severe Sepsis [ ] Septic Shock [ ] Septicemia [ ] Sepsis now resolved [ ] SIRS due to non-infectious cause with organ dysfunction [ ] SIRS due to non-infectious cause without organ dysfunction [ x] OtherFindings due to acute beonchitis [ ] Comment/Explanation: Present on Admission: [ x] Yes (Y) [ ] Clinically undeterminable (W) [ ] No (N) [ ] Ruled Out Please also document response in your Progress Notes and/or Discharge Summary and indicate if the condition was present on admission Notes: SIRS/ SIRS WITH ORGAN DYSFUNCTION Systemic inflammatory response syndrome (SIRS) generally refers to the systemic response to trauma/villanueva or other insult such as Acute Myocardial Infarction, Acute Pancreatitis, and Major Surgery with symptoms including fever, tachycardia , tachypnea, and leukocytosis (1). BACTEREMIA Presence of viable bacteria in the circulating blood (2). This term is reserved for patients that do not manifest above SIRS response. SEPTICEMIA Generally refers to a systemic disease associated with the presence of pathological microorganisms or toxins in the blood, which can include bacteria, viruses, fungi or other organisms (1). SEPSIS Generally refers to SIRS due infection (1). SEVERE SEPSIS Generally refers to sepsis associated with acute organ dysfunction (1). SEPTIC SHOCK Generally refers to circulatory failure associated with severe sepsis (2), and defined as hypotension or hypoperfusion despite adequate fluid resuscitation (1 hour) (3). REFERENCES: 1. [place] [employer]/Society of Critical Care Medicine Consensus Conference. Definitions for sepsis and organ failure and guidelines for the use of innovative therapies in sepsis. Critical Care Med 1992;20:864 - 74. 2. Gonzalo wakefield MM, Quintin MP, Abdoulaye ACEVES, Tru E, Chu D, Manohar D, Shashi J, Becky SM , Win JL, Danielle G; International Sepsis Definitions Conference. 2001 SCCM/ESICM/ACCP/ATS/SIS International Sepsis Definitions Conference. Intensive Care Med. 2002;29(4):530-8. Epub 2002Feb 26. Review. PubMed PMID:[id number] 3. ICD-9-CM Official Guidelines for Coding and Reporting 4. Medscape Drugs, Diseases and Procedures references 5. [employer] Textbook of Internal Medicine. 18th Edition MTDD
== END 2017-11-01 18:25 | disposition home or self-care (01) | DRG 202 ==
LOC: ED 04:22 → 4A 14:46
PROVIDERS: ADMIT Internal Medicine; ATTEND Internal Medicine
DX: J20.9 Acute bronchitis, unspecified (principal); Z68.41 Body mass index [BMI] 40.0-44.9, adult; R27.0 Ataxia, unspecified; I10 Essential (primary) hypertension; Z88.2 Allergy status to sulfonamides; Z90.710 Acquired absence of both cervix and uterus; Z98.51 Tubal ligation status; E66.01 Morbid (severe) obesity due to excess calories
CPT/HCPCS: 36415; 70450; 70551; 71020; 78452; 80053; 82550; 82553; 84484; 85025; 93005; 93010; 93017; 93880; 94640; 96374; 99285; A9502; J2060; J2785; J2930; J7040

== ENCOUNTER 2018-01-31 01:00 | Emergency (ER) | payer MEDICARE, OTHER ==
[2018-01-31] MEDS ORDERED: CATAPRES ONE (02:26)
[2018-01-31] MEDS ORDERED: CATAPRES PO ONE (02:29)
--- NOTE | 2018-01-31 07:41 | Emergency Department Report ---
ED General Adult HPI - General Chief complaint: High BP Stated complaint: HTN Time Seen by Provider: 01/31/18 06:35 Source: patient, old records reviewed (normal creatinine October 2017) Mode of arrival: Ambulatory Limitations: No Limitations - History of Present Illness Initial comments: 72-year-old female with past medical history of chest, hypertension, brain tumor , elevated cholesterol, and scleroderma presents to the hospital with complaints of uncontrolled blood pressure. Patient is out of her medication for the past 4 days. Presents with right-sided headache described as a aching pressure behind the eyes initially rated 10/10 in intensity that started after arrival to the hospital. Clonidine 0.2 mg during ED stay reduction in blood pressure and headache. Headache now currently at 4/10 in intensity. Patient denies nausea, vomiting, blurred vision, focal weakness, focal numbness, shortness of breath, or chest pain. Patient states she is sad because she buried her sister yesterday as well. PMD: Dr Schmidt Severity scale (0 -10): 5 - Related Data Home Medications Medication Instructions Recorded Confirmed Last Taken guaiFENesin ER [Mucinex ER] 600 mg PO Q12H 10/31/17 10/31/17 10/30/17 Previous Rx's Medication Instructions Recorded Last Taken Type Azithromycin [Zithromax Z-KYLIE] 0 mg PO DAILY #1 tab 11/01/17 Unknown Rx Prednisone 10 mg PO DAILY #10 tab.ds.pk 11/01/17 Unknown Rx oxyCODONE /ACETAMINOPHEN [Percocet 1 tab PO QHS PRN #7 tablet 11/01/17 Unknown Rx 5/325] amLODIPine [Norvasc] 10 mg PO DAILY #30 tab 01/31/18 Unknown Rx Allergies Allergy/AdvReac Type Severity Reaction Status Date / Time Sulfa (Sulfonamide Allergy Hives Verified 10/31/17 10:46 Antibiotics) ED Review of Systems ROS: Stated complaint: HTN Other details as noted in HPI Comment: All other systems reviewed and negative Other: Constitutional: No fevers chills or weight loss Eyes: No eye pain visual changes or discharge ENT: No ear pain or throat pain Neck: Denies pain Respiratory: Denies cough wheezing shortness of breath Cardiovascular: Denies chest pain, palpitations, syncope GI: Denies abdominal pain, nausea, vomiting, diarrhea : Denies dysuria, urinary frequency, or urgency Musculoskeletal: Denies back pain, joint swelling Skin: Denies rash, lesions, erythema Neurologic: As per HPI Psychiatric: Denies suicidal ideation, hallucinations Hematological/lymphatic: Denies easy bruising, lymphadenopathy ED Past Medical Hx - Past Medical History Previous Medical History?: Yes Hx Hypertension: Yes Hx Heart Attack/AMI: No Hx Congestive Heart Failure: Yes Hx Diabetes: No Hx Seizures: No Hx Asthma: No Hx COPD: No Hx Dementia: No Additional medical history: scleraderma. brain tumor. elevated cholesterol - Surgical History Past Surgical History?: Yes Hx Coronary Stent: No Hx Appendectomy: Yes Additional Surgical History: hysterectomy. tubal ligation. bladder tack - Social History Smoking Status: Never Smoker - Medications Home Medications: Home Medications Medication Instructions Recorded Confirmed Last Taken Type guaiFENesin ER [Mucinex ER] 600 mg PO Q12H 10/31/17 10/31/17 10/30/17 History Azithromycin [Zithromax Z-KYLIE] 0 mg PO DAILY #1 tab 11/01/17 Unknown Rx Prednisone 10 mg PO DAILY #10 tab.ds.pk 11/01/17 Unknown Rx oxyCODONE /ACETAMINOPHEN [Percocet 1 tab PO QHS PRN #7 tablet 11/01/17 Unknown Rx 5/325] amLODIPine [Norvasc] 10 mg PO DAILY #30 tab 01/31/18 Unknown Rx ED Physical Exam - General Limitations: No Limitations - Other Other exam information: General: No limitations, patient is alert in no acute distress Head exam: Atraumatic, normocephalic Eyes exam: Normal appearance, pupils equal reactive to light, extraocular movements intact ENT: Moist mucous membrane, normal oropharynx Neck exam: Normal inspection, full range of motion, no meningismus nontender Respiratory exam: Clear to auscultation bilateral, no wheezes, rales, crackles Cardiovascular: Normal rate and rhythm, normal heart sounds Abdomen: Soft, nondistended, and nontender, with normal bowel sounds, no rebound, or guarding Extremity: Full range of motion normal inspection no deformity Back: Normal Inspection, full range of motion, no tenderness Neurologic: Alert, oriented x3, cranial nerves intact, no motor or sensory deficit Psychiatric: normal affect, normal mood Skin: Warm, dry, intact ED Course Vital Signs 01/31/18 01/31/18 01/31/18 02:13 03:47 07:03 Temperature 98.3 F Pulse Rate 79 78 73 Respiratory 16 18 Rate Blood Pressure 203/110 Blood Pressure 170/106 128/81 [Left] O2 Sat by Pulse 96 100 99 Oximetry ED Medical Decision Making - Medical Decision Making Patient has uncontrolled hypertension likely secondary to medication noncompliance Recent creatinine on record from October within normal limits Blood pressure reduction with clonidine Headache improvement will be BP reduction Plan to discharge home on refill of medications and PMD follow-up - Differential Diagnosis hypertensive emergency/urgency, noncompliant Critical Care Time: No Critical care attestation.: If time is entered above; I have spent that time in minutes in the direct care of this critically ill patient, excluding procedure time. ED Disposition Clinical Impression: Uncontrolled hypertension, Noncompliance with medication regimen Disposition: TO HOME OR SELFCARE Is pt being admited?: No Does the pt Need Aspirin: No Condition: Stable Instructions: Hypertension (ED) Additional Instructions: Take the medication daily as prescribed. Follow up with your doctor. Return if symptoms worsen Prescriptions: amLODIPine [Norvasc] 10 mg PO DAILY #30 tab Referrals: PRIMARY CARE, [Primary Care Provider] - 3-5 Days Time of Disposition: 07:43
[2018-01-31 07:48] VITALS: BP 118/86
== END 2018-01-31 08:11 | disposition home or self-care (01) ==
LOC: ED 01:00
DX: I11.0 Hypertensive heart disease with heart failure (principal); I50.9 Heart failure, unspecified; Z90.710 Acquired absence of both cervix and uterus; Z98.51 Tubal ligation status; Z90.49 Acquired absence of other specified parts of digestive tract; Z88.2 Allergy status to sulfonamides; Z91.14 Patient's other noncompliance with medication regimen
CPT/HCPCS: 99282

== ENCOUNTER 2019-04-11 02:25 | Emergency (ER) | payer MEDICARE ==
--- NOTE | 2019-04-11 08:29 | Emergency Department Report ---
ED Extremity Problem HPI - General Chief complaint: Extremity Injury, Lower Stated complaint: BILATERAL LEG/FOOT EDEMA/CHEST PRESSURE Time Seen by Provider: 04/11/19 07:56 Source: patient Mode of arrival: Ambulatory Limitations: No Limitations - History of Present Illness Initial comments: 73-year-old female with a history of hypertension controlled with medication presents to ED complaining of bilateral ankle and foot swelling for the past 2-3 days. Patient states that yesterday she is soaked it in some water with Epson salt. Patient says she woke up this morning and foot were swollen. Patient states that her blood pressure has been high recently. But she takes amlodipine currently for blood pressure. She denies chest pain, fever, headache, blurred vision, calf tenderness or pain. She does admit some shortness of breath. She is normal for her most days. MD Complaint: extremity swelling (bilateral ) - Related Data Previous Rx's Medication Instructions Recorded Last Taken Type oxyCODONE /ACETAMINOPHEN [Percocet 1 tab PO QHS PRN #7 tablet 11/01/17 Unknown Rx 5/325 mg] amLODIPine [Norvasc] 10 mg PO DAILY #30 tab 11/24/18 Unknown Rx Furosemide [Lasix] 20 mg PO QDAY #10 tablet 04/11/19 Unknown Rx Allergies Allergy/AdvReac Type Severity Reaction Status Date / Time Sulfa (Sulfonamide Allergy Hives Verified 10/31/17 10:46 Antibiotics) ED Review of Systems ROS: Stated complaint: BILATERAL LEG/FOOT EDEMA/CHEST PRESSURE Other details as noted in HPI Comment: All other systems reviewed and negative ED Past Medical Hx - Past Medical History Previous Medical History?: Yes Hx Hypertension: Yes Hx Heart Attack/AMI: No Hx Congestive Heart Failure: Yes (Patient denies) Hx Diabetes: No Hx Seizures: No Hx Asthma: No Hx COPD: No Hx Dementia: No Additional medical history: scleraderma. brain tumor. elevated cholesterol. Hol[place] Palsy - Surgical History Past Surgical History?: Yes Hx Coronary Stent: No Hx Appendectomy: Yes Additional Surgical History: hysterectomy. tubal ligation. bladder tack - Social History Smoking Status: Never Smoker - Medications Home Medications: Home Medications Medication Instructions Recorded Confirmed Last Taken Type oxyCODONE /ACETAMINOPHEN [Percocet 1 tab PO QHS PRN #7 tablet 11/01/17 11/24/18 Unknown Rx 5/325 mg] amLODIPine [Norvasc] 10 mg PO DAILY #30 tab 11/24/18 Unknown Rx Furosemide [Lasix] 20 mg PO QDAY #10 tablet 04/11/19 Unknown Rx ED Physical Exam - General Limitations: No Limitations General appearance: alert, in no apparent distress - Head Head exam: Present: atraumatic, normocephalic - Eye Eye exam: Present: normal appearance - ENT ENT exam: Present: mucous membranes moist - Neck Neck exam: Present: normal inspection - Respiratory Respiratory exam: Present: normal lung sounds bilaterally. Absent: respiratory distress, wheezes, rales - Cardiovascular Cardiovascular Exam: Present: regular rate, normal rhythm. Absent: systolic murmur, diastolic murmur, rubs, gallop - GI/Abdominal GI/Abdominal exam: Present: soft, normal bowel sounds. Absent: distended, tenderness, guarding - Extremities Exam Extremities exam: Present: normal inspection, full ROM - Expanded Lower Extremity Exam Right Hip exam: Present: normal inspection, full ROM Upper Leg exam: Present: normal inspection, full ROM Knee exam: Present: normal inspection, full ROM Lower Leg exam: Present: normal inspection, full ROM. Absent: tenderness, dislocation, erythema, palpable cord, Ciara's sign Ankle exam: Present: full ROM, swelling (2 plus pitting edema). Absent: tenderness Foot/Toe exam: Present: normal inspection, full ROM, swelling. Absent: tenderness, abrasion, laceration, puncture wound Neuro vascular tendon exam: Present: no vascular compromise Gait: Positive: observed and normal Left Hip exam: Present: normal inspection, full ROM Upper Leg exam: Present: normal inspection, full ROM Knee exam: Present: normal inspection, full ROM. Absent: tenderness Lower Leg exam: Present: normal inspection, full ROM. Absent: tenderness, dislocation, erythema, palpable cord, Ciara's sign Ankle exam: Present: full ROM, swelling. Absent: tenderness, deformity, dislocation Foot/Toe exam: Present: normal inspection, full ROM, swelling. Absent: tenderness, dislocation, erythema Neuro vascular tendon exam: Present: no vascular compromise. Absent: motor deficit, sensory deficit Gait: Positive: observed and normal - Back Exam Back exam: Present: normal inspection - Neurological Exam Neurological exam: Present: alert, oriented X3 - Psychiatric Psychiatric exam: Present: normal affect, normal mood - Skin Skin exam: Present: warm, dry, intact, normal color. Absent: rash ED Course Vital Signs 04/11/19 04/11/19 04/11/19 02:43 07:59 08:44 Temperature 97.7 F 98.2 F Pulse Rate 85 71 77 Respiratory 18 Rate Blood Pressure 142/85 175/89 Blood Pressure 175/89 [Left] O2 Sat by Pulse 100 97 Oximetry 04/11/19 09:31 Temperature 98.8 F Pulse Rate 72 Respiratory 18 Rate Blood Pressure Blood Pressure 154/86 [Left] O2 Sat by Pulse 99 Oximetry ED Medical Decision Making - Lab Data Result diagrams: 04/11/19 08:05 04/11/19 08:05 - Radiology Data Radiology results: report reviewed, image reviewed COMPARISON: 11/22/2018 FINDINGS: The heart size is normal. There is no pulmonary vascular congestion seen. Mediastinal contours are normal. Lungs are clear. There is no pleural effusion seen. There is no pneumothorax seen. IMPRESSION: No acute abnormality identified. This document is electronically signed by Pam Chávez MD., Apr 11 2019 09:00:32 AM ET Transcribed By: AUBREY Dictated By: PAM CHÁVEZ MD Electronically Authenticated By: PAM CHÁVEZ MD Signed Date/Time: 04/11/19 0902 - Medical Decision Making 73-year-old female presents with pedal swelling Chest x-ray, labs, all normal CBC results above Discussed findings with the patient. Blood pressure reduced with 0.1 clonidine in ED. Vital signs normalized. Discussed patient with discharge home with some Lasix to help with swelling. Discussed the patient to elevate legs throughout the day. Discussed the patient did not have any prolonged standing or sitting. Patient states that she has appointment with her primary care doctor Saturday morning at 8 AM. Discussed the patient images she keeps that appointment and follow-up. She is resting comfortably in the bed she is in no acute distress. Critical care attestation.: If time is entered above; I have spent that time in minutes in the direct care of this critically ill patient, excluding procedure time. ED Disposition Clinical Impression: Bilateral swelling of feet and ankles, Chronic hypertension Disposition: DC-01 TO HOME OR SELFCARE Is pt being admited?: No Does the pt Need Aspirin: No Condition: Stable Instructions: Leg Edema (ED), Chronic Hypertension (ED), Hypertension (ED) Additional Instructions: Make sure to follow up with the primary care physician as discussed on Saturday morning. Take all your medications as you've been prescribed. If you have any worsening symptoms or develop new symptoms please return to ED immediately. Prescriptions: Furosemide [Lasix] 20 mg PO QDAY #10 tablet Referrals: PATITO GARCIA MD [Primary Care Provider] - 3-5 Days Time of Disposition: 10:00
[2019-04-11] MEDS ORDERED: CATAPRES PO ONE (08:32)
--- NOTE | 2019-04-11 09:02 | XRay Report ---
PROCEDURE: XR CHEST ROUTINE 2V TECHNIQUE: Chest, 2 views HISTORY: sob COMPARISON: 11/22/2018 FINDINGS: The heart size is normal. There is no pulmonary vascular congestion seen. Mediastinal contours are normal. Lungs are clear. There is no pleural effusion seen. There is no pneumothorax seen. IMPRESSION: No acute abnormality identified. This document is electronically signed by Pam Maynard MD., Apr 11 2019 09:00:32 AM ET
[2019-04-11 09:09] LABS: Alanine Aminotransferase 16 units/L (7-56); Albumin 4.2 g/dL (3.9-5); BUN/Creatinine Ratio 18; Blood Urea Nitrogen 11 mg/dL (7-17); Calcium 9.1 mg/dL (8.4-10.2); Hemolysis Index 4
[2019-04-11 09:14] LABS: Hematocrit 37.5 % (30.3-42.9); Hemoglobin 12.6 gm/dl (10.1-14.3); Mean Corpuscular HGB Conc 34 % (30-34); Mean Corpuscular Volume 87 fl (79-97); Platelet Count 254 K/mm3 (140-440); Red Blood Count 4.31 M/mm3 (3.65-5.03)
[2019-04-11 09:31] VITALS: BP 154/86
== END 2019-04-11 10:21 | disposition home or self-care (01) ==
LOC: ED 02:25
DX: M79.89 Other specified soft tissue disorders (principal); I11.0 Hypertensive heart disease with heart failure; I50.9 Heart failure, unspecified; E78.00 Pure hypercholesterolemia, unspecified; G51.0 Bell's palsy; Z88.2 Allergy status to sulfonamides; Z90.49 Acquired absence of other specified parts of digestive tract; Z90.710 Acquired absence of both cervix and uterus; Z98.51 Tubal ligation status
CPT/HCPCS: 36415; 71046; 80053; 84484; 85027; 99283

== ENCOUNTER 2019-07-25 01:54 | Emergency (ER) | payer MEDICARE ==
[2019-07-25] MEDS ORDERED: NACL 0.9% 1000 ML 1,000 ML IV ONE (02:05)
[2019-07-25] MEDS ORDERED: TYLENOL PO ONE (02:06)
[2019-07-25 02:23] LABS: Basophils # (Auto) 0.1 K/mm3 (0.0-0.1); Basophils % (Auto) 0.6 % (0.0-1.8); Eosinophils % (Auto) 0.1 % (0.0-4.3); Hematocrit 33.8 % (30.3-42.9); Hemoglobin 11.5 gm/dl (10.1-14.3); Lymphocytes % (Auto) 7.1 % (13.4-35.0); Mean Corpuscular HGB Conc 34 % (30-34); Mean Corpuscular Volume 87 fl (79-97); Monocytes # (Auto) 1.4 K/mm3 (0.0-0.8); Monocytes % (Auto) 10.1 % (0.0-7.3); Platelet Count 231 K/mm3 (140-440); Red Blood Count 3.87 M/mm3 (3.65-5.03); Red Cell Distribution Width 13.5 % (13.2-15.2)
[2019-07-25 02:43] LABS: BUN/Creatinine Ratio 16; Blood Urea Nitrogen 14 mg/dL (7-17); Calcium 9.2 mg/dL (8.4-10.2); Hemolysis Index 4
[2019-07-25] MEDS ORDERED: ZOFRAN IV ONE (02:56)
[2019-07-25] MEDS ORDERED: ROCEPHIN/NS 2 GM/100 ML 2 GM/100 ML BAG IV ONE (03:06)
--- NOTE | 2019-07-25 04:21 | Emergency Department Report ---
- General Chief complaint: Pain General Stated complaint: DEHYDRATION/GENERAL PAIN Time Seen by Provider: 07/25/19 02:04 Source: patient, EMS Mode of arrival: Stretcher Limitations: No Limitations - History of Present Illness Initial comments: Mrs. George is a very pleasant 73-year-old female with history of hypertension who presents with generalized body aches. She feels dehydrated. She was diagnosed with UTI this past week by her PCP. She was prescribed nitrofurantoin. She feels as if she needs a "shot". Subjective fever and chills. Generalized malaise. Denies cough. Denies shortness of breath. Arrived per EMS. MD Complaint: generalized weakness -: Gradual, days(s) (2) Location: generalized Severity scale (0 -10): 10 Quality: aching Consistency: constant Improves with: none Worsens with: none Associated Symptoms: myalgias - Related Data Previous Rx's Medication Instructions Recorded Last Taken Type oxyCODONE /ACETAMINOPHEN [Percocet 1 tab PO QHS PRN #7 tablet 11/01/17 Unknown Rx 5/325 mg] amLODIPine [Norvasc] 10 mg PO DAILY #30 tab 11/24/18 Unknown Rx Furosemide [Lasix] 20 mg PO QDAY #10 tablet 04/11/19 Unknown Rx Cefdinir 300 mg PO BID 10 Days #20 capsule 07/25/19 Unknown Rx Allergies Allergy/AdvReac Type Severity Reaction Status Date / Time Sulfa (Sulfonamide Allergy Hives Verified 10/31/17 10:46 Antibiotics) ED Review of Systems ROS: Stated complaint: DEHYDRATION/GENERAL PAIN Other details as noted in HPI Comment: All other systems reviewed and negative Constitutional: chills, fever, malaise Cardiovascular: denies: chest pain Gastrointestinal: denies: abdominal pain Genitourinary: denies: urgency, dysuria ED Past Medical Hx - Past Medical History Previous Medical History?: Yes Hx Hypertension: Yes Hx Heart Attack/AMI: No Hx Congestive Heart Failure: Yes (Patient denies) Hx Diabetes: No Hx Seizures: No Hx Asthma: No Hx COPD: No Hx Dementia: No Additional medical history: scleraderma. brain tumor. elevated cholesterol. [place] Palsy - Surgical History Hx Coronary Stent: No Hx Appendectomy: Yes Additional Surgical History: hysterectomy. tubal ligation. bladder tack - Social History Smoking Status: Never Smoker Substance Use Type: None - Medications Home Medications: Home Medications Medication Instructions Recorded Confirmed Last Taken Type oxyCODONE /ACETAMINOPHEN [Percocet 1 tab PO QHS PRN #7 tablet 11/01/17 11/24/18 Unknown Rx 5/325 mg] amLODIPine [Norvasc] 10 mg PO DAILY #30 tab 11/24/18 Unknown Rx Furosemide [Lasix] 20 mg PO QDAY #10 tablet 04/11/19 Unknown Rx Cefdinir 300 mg PO BID 10 Days #20 capsule 07/25/19 Unknown Rx ED Physical Exam - General Limitations: No Limitations General appearance: alert, in no apparent distress - Head Head exam: Present: atraumatic, normocephalic - Eye Eye exam: Present: normal appearance - ENT ENT exam: Present: mucous membranes moist - Neck Neck exam: Present: normal inspection, full ROM - Respiratory Respiratory exam: Present: normal lung sounds bilaterally. Absent: respiratory distress, wheezes, rales, rhonchi - Cardiovascular Cardiovascular Exam: Present: regular rate, normal rhythm, normal heart sounds. Absent: systolic murmur, diastolic murmur, rubs, gallop - GI/Abdominal GI/Abdominal exam: Present: soft, normal bowel sounds. Absent: distended, tenderness, guarding, rebound - Extremities Exam Extremities exam: Present: normal inspection - Back Exam Back exam: Present: normal inspection - Neurological Exam Neurological exam: Present: alert, oriented X3 - Psychiatric Psychiatric exam: Present: normal affect, normal mood - Skin Skin exam: Present: warm, dry, intact, normal color. Absent: rash ED Course Vital Signs 07/25/19 07/25/19 07/25/19 02:11 02:33 03:37 Temperature 100 F H Pulse Rate 95 H 97 H 106 H Respiratory 22 17 24 Rate Blood Pressure 149/88 149/88 Blood Pressure 149/88 [Left] O2 Sat by Pulse 97 Oximetry ED Medical Decision Making - Lab Data Result diagrams: 07/25/19 02:11 07/25/19 02:11 Laboratory Results - last 24 hr 07/25/19 07/25/19 02:11 02:11 WBC 13.5 H RBC 3.87 Hgb 11.5 Hct 33.8 MCV 87 MCH 30 MCHC 34 RDW 13.5 Plt Count 231 Lymph % (Auto) 7.1 L Ceiba % (Auto) 10.1 H Eos % (Auto) 0.1 Baso % (Auto) 0.6 Lymph # 1.0 L Ceiba # 1.4 H Eos # 0.0 Baso # 0.1 Seg Neutrophils % 82.1 H Seg Neutrophils # 11.1 H Sodium 136 L Potassium 3.9 Chloride 95.5 L Carbon Dioxide 25 Anion Gap 19 BUN 14 Creatinine 0.9 Estimated GFR > 60 BUN/Creatinine Ratio 16 Glucose 123 H Calcium 9.2 - Medical Decision Making Mrs. George is a very pleasant 73-year-old female with history of hypertension who was recently diagnosed UTI. She has generalized malaise and body aches and low-grade temperature in the emergency department. White count notable for elevation at 13,000. She received IV ceftriaxone and IV fluid. She felt much better after receiving Zofran and Tylenol. I have changed antibiotic to cefdinir considering worsening symptoms. dc'd home Critical care attestation.: If time is entered above; I have spent that time in minutes in the direct care of this critically ill patient, excluding procedure time. ED Disposition Clinical Impression: Fever, Hx: UTI (urinary tract infection), Malaise, Generalized body aches Disposition: DC-01 TO HOME OR SELFCARE Is pt being admited?: No Does the pt Need Aspirin: No Condition: Stable Instructions: Fever in Adults (ED) Prescriptions: Cefdinir 300 mg PO BID 10 Days #20 capsule Referrals: NATASHA AVENDANO [Other] - 2-3 Days
[2019-07-25] MEDS ORDERED: NORCO 5/325 PO ONE (04:25)
[2019-07-25 04:43] VITALS: BP 142/79
== END 2019-07-25 04:53 | disposition home or self-care (01) ==
LOC: ED 01:54
DX: R50.9 Fever, unspecified (principal); R53.1 Weakness; M79.10 Myalgia, unspecified site; I11.0 Hypertensive heart disease with heart failure; I50.9 Heart failure, unspecified; E78.00 Pure hypercholesterolemia, unspecified; Z90.710 Acquired absence of both cervix and uterus; Z98.51 Tubal ligation status; Z79.899 Other long term (current) drug therapy; Z88.2 Allergy status to sulfonamides
CPT/HCPCS: 36415; 80048; 85025; 96361; 96365; 96375; 99284; J0696; J2405; J7030

== ENCOUNTER 2020-10-29 20:24 | Emergency (ER) | payer MEDICARE, OTHER ==
[2020-10-29 20:56] VITALS: BP 144/82
[2020-10-29 21:32] LABS: Basophils % (Auto) 0.7 % (0.0-1.8); Eosinophils % (Auto) 0.1 % (0.0-4.3); Hematocrit 40.2 % (30.3-42.9); Hemoglobin 13.7 gm/dl (10.1-14.3); Lymphocytes % (Auto) 19.4 % (13.4-35.0); Mean Corpuscular HGB Conc 34 % (30-34); Mean Corpuscular Volume 89 fl (79-97); Monocytes # (Auto) 0.3 K/mm3 (0.0-0.8); Monocytes % (Auto) 5.8 % (0.0-7.3); Platelet Count 234 K/mm3 (140-440); Red Blood Count 4.54 M/mm3 (3.65-5.03); Red Cell Distribution Width 13.4 % (13.2-15.2)
[2020-10-29 21:56] LABS: Alanine Aminotransferase 30 units/L (7-56); Albumin 4.4 g/dL (3.9-5); BUN/Creatinine Ratio 16; Blood Urea Nitrogen 13 mg/dL (7-17); Calcium 9.5 mg/dL (8.4-10.2); Hemolysis Index 25
== END 2020-10-29 23:45 | disposition left against medical advice (07) ==
LOC: ED 20:24
DX: R53.1 Weakness (principal); R11.2 Nausea with vomiting, unspecified; Z53.21 Procedure and treatment not carried out due to patient leaving prior to being seen by health care provider
CPT/HCPCS: 36415; 80053; 83690; 85025; 93005

== ENCOUNTER 2020-10-31 10:51 | Inpatient (IN) | payer MEDICARE, OTHER ==
[2020-10-31] MEDS ORDERED: SODIUM CHLORIDE 0.9% 1000 ML IV SOLN IV ONE (14:47)
--- NOTE | 2020-10-31 14:47 | Event Note ---
ED Screening Note ED Screening Note: generalized body aches +chills that began 6 days ago +dry cough no fever no n/v/d no appetite no sick contacts no recent travel PMHx HTN, states she took amlodipine allergy: sulfa non smoker This initial assessment/diagnostic orders/clinical plan/treatment(s) is/are subject to change based on patients health status, clinical progression and re- assessment by fellow clinical providers in the ED. Further treatment and workup at subsequent clinical providers discretion. Patient/guardian urged not to elope from the ED as their condition may be serious if not clinically assessed and managed. Initial orders include: labs, UA, CXR PUI tachycardia, hypoxia, low grade fever oxygen is 92%
[2020-10-31] MEDS ORDERED: ACETAMINOPHEN 325 MG TAB PO ONE (14:48)
--- NOTE | 2020-10-31 15:24 | XRay Report ---
CHEST 2 VIEWS INDICATION / CLINICAL INFORMATION: cough, sob. COMPARISON: 04/11/2019 FINDINGS: SUPPORT DEVICES: None. HEART / MEDIASTINUM: No significant abnormality. LUNGS / PLEURA: There is airspace opacity noted in the left lower lobe. No pneumothorax. ADDITIONAL FINDINGS: No significant additional findings. IMPRESSION: 1. There is airspace opacity in the left lower lobe characteristic of pneumonia. Follow-up radiograph s are recommended in the next several weeks to ensure clearing of the lungs. Signer Name: Demetrio Simmons MD Signed: 10/31/2020 3:19 PM Workstation Name: [id number]
[2020-10-31 15:29] LABS: Basophils % (Auto) 0.1 % (0.0-1.8); Hematocrit 36.5 % (30.3-42.9); Hemoglobin 12.3 gm/dl (10.1-14.3); Lymphocytes # (Auto) 0.5 K/mm3 (1.2-5.4); Lymphocytes % (Auto) 5.9 % (13.4-35.0); Mean Corpuscular HGB Conc 34 % (30-34); Mean Corpuscular Volume 86 fl (79-97); Monocytes # (Auto) 0.4 K/mm3 (0.0-0.8); Monocytes % (Auto) 4.4 % (0.0-7.3); Platelet Count 286 K/mm3 (140-440); Red Blood Count 4.23 M/mm3 (3.65-5.03); Red Cell Distribution Width 13.4 % (13.2-15.2)
[2020-10-31 15:41] LABS: Alanine Aminotransferase 27 units/L (7-56); BUN/Creatinine Ratio 19; Blood Urea Nitrogen 15 mg/dL (7-17); Calcium 9.4 mg/dL (8.4-10.2); Hemolysis Index 38
[2020-10-31] MEDS ORDERED: AZITHROMYCIN 500 MG in SODIUM CHLORIDE 0.9% 250ML 250 ML IV ONE (16:15)
[2020-10-31] MEDS ORDERED: SODIUM CHLORIDE 0.9% 1000 ML 1,000 ML IV ONE (16:15)
[2020-10-31] MEDS ORDERED: cefTRIAXone/NS 2 GM/100 ML 2 GM/100 ML BAG IV ONE (16:15)
--- NOTE | 2020-10-31 17:44 | Emergency Department Report ---
HPI - General Chief Complaint: Weakness Time Seen by Provider: 10/31/20 13:33 - HPI HPI: Room 36 The patient is a 74-year-old female present with a chief complaint of fatigue. Patient states for the past week she has had a poor appetite, felt fatigued and has had cramping all over. Patient denies fever, cough or shortness of breath. Patient states she believes she has lost approximately 5 to 6 pounds over the past 4 to 5 days. ED Past Medical Hx - Past Medical History Previous Medical History?: Yes Hx Hypertension: Yes Hx Congestive Heart Failure: Yes (Patient denies) Additional medical history: Scleroderma. brain tumor. elevated cholesterol. [place] Palsy - Surgical History Past Surgical History?: Yes Hx Appendectomy: Yes Additional Surgical History: hysterectomy. tubal ligation. bladder tack - Family History Family history: no significant - Social History Smoking Status: Never Smoker Substance Use Type: None - Medications Home Medications: Home Medications Medication Instructions Recorded Confirmed Last Taken Type oxyCODONE /ACETAMINOPHEN [Percocet 1 tab PO QHS PRN #7 tablet 11/01/17 11/24/18 Unknown Rx 5/325 mg] amLODIPine 10 mg PO DAILY #30 tab 11/24/18 Unknown Rx Furosemide [Lasix] 20 mg PO QDAY #10 tablet 04/11/19 Unknown Rx Cefdinir 300 mg PO BID 10 Days #20 capsule 07/25/19 Unknown Rx ED Review of Systems ROS: Stated complaint: WEAKNESS Other details as noted in HPI Constitutional: weakness. denies: fever Eyes: denies: eye pain ENT: denies: throat pain Respiratory: denies: cough, shortness of breath Cardiovascular: denies: chest pain Endocrine: no symptoms reported Gastrointestinal: denies: abdominal pain Genitourinary: denies: dysuria Musculoskeletal: myalgia Neurological: denies: headache Physical Exam - Physical Exam Vital Signs: Vital Signs 10/31/20 10/31/20 10/31/20 12:59 14:48 16:36 Temperature 98 F 99.9 F H Pulse Rate 101 H 112 H Respiratory 20 20 18 Rate Blood Pressure 172/147 161/93 [Right] O2 Sat by Pulse 92 93 Oximetry Physical Exam: GENERAL: The patient is well-developed well-nourished female lying on stretcher not appearing to be in acute distress. [] HEENT: Normocephalic. Atraumatic. Extraocular motions are intact. Patient has moist mucous membranes. NECK: Supple. Trachea midline CHEST/LUNGS: Faint crackles left base. There is no respiratory distress noted. HEART/CARDIOVASCULAR: Regular. There is no tachycardia. There is no gallop rub or murmur. ABDOMEN: Abdomen is soft, nontender. Patient has normal bowel sounds. There is no abdominal distention. SKIN: There is no rash. There is no edema. There is no diaphoresis. NEURO: The patient is awake, alert, and oriented. The patient is cooperative. The patient has normal speech MUSCULOSKELETAL: There is no evidence of acute injury. ED Course Vital Signs 10/31/20 10/31/20 10/31/20 12:59 14:48 16:36 Temperature 98 F 99.9 F H Pulse Rate 101 H 112 H Respiratory 20 20 18 Rate Blood Pressure 172/147 161/93 [Right] O2 Sat by Pulse 92 93 Oximetry - Reevaluation(s) Reevaluation #1: 10/31/20 19:03 Walking SPO2 90-91% on room air. Will admit the patient to the hospital ED Medical Decision Making - Lab Data Result diagrams: 10/31/20 15:12 10/31/20 15:12 Laboratory Tests 10/31/20 10/31/20 10/31/20 15:12 15:12 15:12 WBC 8.0 RBC 4.23 Hgb 12.3 Hct 36.5 MCV 86 MCH 29 MCHC 34 RDW 13.4 Plt Count 286 Lymph % (Auto) 5.9 L [place] % (Auto) 4.4 Eos % (Auto) 0.0 Baso % (Auto) 0.1 Lymph # (Auto) 0.5 L [place] # (Auto) 0.4 Eos # (Auto) 0.0 Baso # (Auto) 0.0 Seg Neutrophils % 89.6 H Seg Neutrophils # 7.2 ABG pH ABG pCO2 ABG pO2 ABG HCO3 ABG O2 Saturation ABG O2 Content ABG Base Excess ABG Hemoglobin ABG Carboxyhemoglobin ABG Methemoglobin Oxyhemoglobin FiO2 Sodium 135 L Potassium 3.8 Chloride 97.4 L Carbon Dioxide 24 Anion Gap 17 BUN 15 Creatinine 0.8 Estimated GFR > 60 BUN/Creatinine Ratio 19 Glucose 121 H Lactic Acid 1.60 Calcium 9.4 Total Bilirubin 0.70 AST 53 H ALT 27 Alkaline Phosphatase 70 Total Protein 8.8 H Albumin 4.0 Albumin/Globulin Ratio 0.8 Urine Color Urine Turbidity Urine pH Ur Specific [place] Urine Protein Urine Glucose (UA) Urine Ketones Urine Blood Urine Nitrite Urine Bilirubin Urine Urobilinogen Ur Leukocyte Esterase Urine WBC (Auto) Urine RBC (Auto) U Epithel Cells (Auto) Urine Bacteria (Auto) Hyaline Casts Urine Mucus 10/31/20 10/31/20 10/31/20 17:09 17:38 18:01 WBC RBC Hgb Hct MCV MCH MCHC RDW Plt Count Lymph % (Auto) [place] % (Auto) Eos % (Auto) Baso % (Auto) Lymph # (Auto) [place] # (Auto) Eos # (Auto) Baso # (Auto) Seg Neutrophils % Seg Neutrophils # ABG pH 7.461 H ABG pCO2 34.0 ABG pO2 68.8 L ABG HCO3 23.7 ABG O2 Saturation 94.9 L ABG O2 Content 15.4 ABG Base Excess 0.3 ABG Hemoglobin 11.7 L ABG Carboxyhemoglobin 0.8 ABG Methemoglobin 0.4 Oxyhemoglobin 93.8 L FiO2 21 Sodium Potassium Chloride Carbon Dioxide Anion Gap BUN Creatinine Estimated GFR BUN/Creatinine Ratio Glucose Lactic Acid 1.20 Calcium Total Bilirubin AST ALT Alkaline Phosphatase Total Protein Albumin Albumin/Globulin Ratio Urine Color Su Urine Turbidity Clear Urine pH 5.0 Ur Specific [place] 1.027 Urine Protein 100 mg/dl Urine Glucose (UA) Neg Urine Ketones Tr Urine Blood Sm Urine Nitrite Neg Urine Bilirubin Neg Urine Urobilinogen 4.0 Ur Leukocyte Esterase Neg Urine WBC (Auto) 6.0 Urine RBC (Auto) 9.0 U Epithel Cells (Auto) 7.0 Urine Bacteria (Auto) 1+ Hyaline Casts 1 Urine Mucus 2+ - EKG Data -: EKG Interpreted by Me EKG shows normal: sinus rhythm Rate: tachycardia (103 bpm) - EKG Data When compared to previous EKG there are: previous EKG unavailable Interpretation: other (No ischemic changes seen) - Radiology Data Radiology results: report reviewed (Chest x-ray), image reviewed (Chest x-ray) interpreted by me: Chest x-ray-left lower lobe infiltrate, no pneumothorax. No foreign body seen [facility] [address] [place] [address] XRay Report Signed Patient: MACARENA HUANG MR#: [id number] : 1945 Acct:[id number] Age/Sex: 74 / F ADM Date: 10/31/20 Loc: ED Attending Dr: Ordering Physician: MAURILIO HOWARD Date of Service: 10/31/20 Procedure(s): XR chest routine 2V Accession Number(s): [id number] cc: MAURILIO HOWARD Fluoro Time In Minutes: CHEST 2 VIEWS INDICATION / CLINICAL INFORMATION: cough, sob. COMPARISON: 04/11/2019 FINDINGS: SUPPORT DEVICES: None. HEART / MEDIASTINUM: No significant abnormality. LUNGS / PLEURA: There is airspace opacity noted in the left lower lobe. No pneumothorax. ADDITIONAL FINDINGS: No significant additional findings. IMPRESSION: 1. There is airspace opacity in the left lower lobe characteristic of pneumonia. Follow-up radiograph s are recommended in the next several weeks to ensure clearing of the lungs. Signer Name: Demetrio Simmons MD Signed: 10/31/2020 3:19 PM Workstation Name: [id number] Transcribed By: SS Dictated By: Demetrio Simmons MD Electronically Authenticated By: Demetrio Simmons MD Signed Date/Time: 10/31/201518 DD/ 17 TD/TT: - Differential Diagnosis Pneumonia, bronchitis, Critical care attestation.: If time is entered above; I have spent that time in minutes in the direct care of this critically ill patient, excluding procedure time. ED Disposition Clinical Impression: Pneumonia, Hypoxia Disposition: [id number] OP ADMIT IP TO THIS HOSP Is pt being admited?: Yes Does the pt Need Aspirin: Yes Condition: Fair Instructions: Bacterial Pneumonia (ED) Referrals: PRIMARY CARE, [Primary Care Provider] - 3-5 Days Time of Disposition: 19:06 (Hospitalist notified (Dr. Lindsay))
[2020-10-31 17:45] LABS: Bacteria,Urine 1+ /HPF (Negative); Bilirubin,Urine NEG (Negative); Blood,Urine SM (Negative); Color,Urine Amber (Yellow); Hyaline Casts,Urine 1 /LPF; Mucus,Urine 2+ /HPF
[2020-10-31 18:12] LABS: ABG Base Excess 0.3 mmol/L (-2.0-3.0); ABG HCO3 23.7 mmol/L (20.0-26.0); ABG Methemoglobin 0.4 % (0.0-1.5); ABG Oxygen Saturation 94.9 % (95.0-99.0); ABG PH 7.461 pH Units (7.350-7.450); ABG PO2 68.8 mm Hg (80.0-90.0)
--- NOTE | 2020-10-31 19:10 | History and Physical Report ---
History of Present Illness Chief complaint: I just feel wiped out History of present illness: 74 YO Female with HTN, Scleroderma, HLD, Brain Tumor presents to ED for evaluation. Pt states that she has been feeling "wiped out" over the past 1 week. Pt acknowledges generalized weakness, decreased exercise tolerance, fat igue, weakness, body aches, malaise, loss of sense of smell, loss of sense of taste, and decreased appetite and oral intake over the past 1 week with worsening symptoms over the past 4 days. EMS notified and upon arrival the patient was found to be in distress and subsequently transported to [facility] for further care and evaluation of the aforementioned symptoms. The patient was seen and evaluated in the emergency department. All lab and imaging studies reviewed. The patient was found to have a pulse oximetry of 87% on exertion which is consistent with acute hypoxemic respiratory failure. The patient was also found to have chest x-ray consistent with pneumonia, as well as hyponatremia and accelerated hypertension. The patient was admitted to the medical floor and initiated on pneumonia protocol as well as coronavirus protocol. Coronavirus PCR is ordered and pending at time of admission. Patient acknowledges subjective fever but denies chills, chest pain, palpitations, skin rash, recent ill contacts, or known exposure to COVID-19. Prior admission on 11/24/2018 reviewed. All medication listed at time of admission has been reconciled. Advanced care planning conducted in ED. Past History Past Medical History: hypertension, hyperlipidemia, other (See HPI) Past Surgical History: appendectomy, hysterectomy, Other (Tubal ligation, bladder suspension) Social history: . denies: smoking, alcohol abuse, prescription drug abuse Family history: diabetes, hypertension Medications and Allergies Allergies Allergy/AdvReac Type Severity Reaction Status Date / Time Sulfa (Sulfonamide Allergy Hives Verified 10/31/17 10:46 Antibiotics) Home Medications Medication Instructions Recorded Confirmed Last Taken Type oxyCODONE /ACETAMINOPHEN [Percocet 1 tab PO QHS PRN #7 tablet 11/01/17 11/24/18 Unknown Rx 5/325 mg] amLODIPine 10 mg PO DAILY #30 tab 11/24/18 Unknown Rx Furosemide [Lasix] 20 mg PO QDAY #10 tablet 04/11/19 Unknown Rx Cefdinir 300 mg PO BID 10 Days #20 capsule 07/25/19 Unknown Rx Review of Systems Constitutional: weight loss, fever, fatigue, weakness, malaise, poor appetite Ears, nose, mouth and throat: other (Loss of sense of smell, loss of sense of taste), no ear pain, no ear discharge, no tinnitis, no decreased hearing Breasts: no change in shape, no swelling, no mass Cardiovascular: no chest pain, no orthopnea, no palpitations, no rapid/irregular heart beat, no edema, no syncope Respiratory: cough, shortness of breath, dyspnea on exertion, no hemoptysis Gastrointestinal: no abdominal pain, no nausea, no vomiting, no diarrhea Genitourinary Female: no pelvic pain, no flank pain, no dysuria, no urinary frequency, no urgency Rectal: no pain, no incontinence, no bleeding Musculoskeletal: no neck stiffness, no neck pain, no arm numbness/tingling, no shooting leg pain, no leg numbness/tingling Neurological: no head injury, no transient paralysis, no paralysis, no weakness, no parathesias, no numbness, no tingling Psychiatric: no anxiety, no sleep disturbances, no insomnia, no change in appetite, no suicidal ideation Endocrine: no cold intolerance, no polyphagia, no polydipsia, no polyuria, no excessive sweating Hematologic/Lymphatic: no easy bruising, no easy bleeding Allergic/Immunologic: no urticaria, no allergic rhinitis, no wheezing Exam - Constitutional Vitals: Temp Pulse Resp BP Pulse Ox 99.9 F H 105 H 18 161/93 91 10/31/20 14:48 10/31/20 18:51 10/31/20 16:36 10/31/20 14:48 10/31/20 18:51 General appearance: Present: mild distress - EENT Eyes: Present: PERRL ENT: hearing intact, clear oral mucosa - Neck Neck: Present: supple, normal ROM - Respiratory Respiratory effort: labored, accessory muscle use Respiratory: bilateral: diminished, rhonchi - Cardiovascular Heart Sounds: Present: S1 & S2. Absent: rub, click - Extremities Extremities: pulses symmetrical, No edema Peripheral Pulses: within normal limits - Abdominal General gastrointestinal: Present: soft, non-tender, non-distended, normal bowel sounds Female genitourinary: Present: normal - Integumentary Integumentary: Present: clear, warm, dry - Musculoskeletal Musculoskeletal: generalized weakness - Psychiatric Psychiatric: appropriate mood/affect, intact judgment & insight - Neurologic Neurologic: CNII-XII intact, moves all extremities Results - Labs CBC & Chem 7: 10/31/20 15:12 10/31/20 15:12 Labs: Abnormal lab results 10/31/20 10/31/20 10/31/20 Range/Units 15:12 15:12 17:38 Lymph % (Auto) 5.9 L (13.4-35.0) % Lymph # (Auto) 0.5 L (1.2-5.4) K/mm3 Seg Neutrophils % 89.6 H (40.0-70.0) % ABG pH 7.461 H (7.350-7.450) pH Units ABG pO2 68.8 L (80.0-90.0) mm Hg ABG O2 Saturation 94.9 L (95.0-99.0) % ABG Hemoglobin 11.7 L (12.0-16.0) gm/dl Oxyhemoglobin 93.8 L (95.0-99.0) % Sodium 135 L (137-145) mmol/L Chloride 97.4 L (98-107) mmol/L Glucose 121 H (65-100) mg/dL AST 53 H (5-40) units/L Total Protein 8.8 H (6.3-8.2) g/dL Assessment and Plan - Patient Problems (1) Acute hypoxemic respiratory failure Current Visit: Yes Status: Acute Plan to address problem: Chest x-ray, supplemental oxygen, nebulizer therapy, prone positioning while in bed, pulmonary toilet, pulse oximetry, ambulate 3 times daily and as needed. Incentive spirometry. (2) Suspected 2019 novel coronavirus infection Current Visit: Yes Status: Acute Plan to address problem: Coronavirus protocol: Coronavirus PCR ordered and is pending at time of admission, contact caution, isolation precaution, nebulizer therapy, pulse oximetry, prone positioning while in bed, IV steroid therapy, IV antibiotic therapy, supportive care. (3) Pneumonia Current Visit: Yes Status: Acute Plan to address problem: Pneumonia protocol: Chest x-ray, CBC, CMP, supplemental oxygen, nebulizer therapy, IV antibiotic therapy, pulse oximetry, blood culture. (4) Accelerated hypertension Current Visit: Yes Status: Acute Plan to address problem: Monitor blood pressure every shift, continue medical management. (5) Hyponatremia syndrome Current Visit: Yes Status: Acute Plan to address problem: BMP, repeat BMP in a.m., IV fluid resuscitation therapy as clinically indicated. (6) DVT prophylaxis Current Visit: Yes Status: Acute Plan to address problem: SCD to bilateral lower extremities while in bed, prophylactic anticoagulation (7) Advance care planning Current Visit: Yes Status: Acute Plan to address problem: Disease education conducted, patient is full code, prognosis discussed, care plan discussed, patient acknowledges understanding and agreement with care plan, +30 minutes.
[2020-10-31] MEDS ORDERED: ONDANSETRON 4 MG/2 ML INJ IV PRN (19:19)
[2020-10-31] MEDS ORDERED: ALBUTEROL 2.5 MG/3 ML NEBU IH PRN (19:19)
[2020-10-31] MEDS ORDERED: oxyCODONE /ACETAMINOPHEN 5-325MG TAB PO PRN (19:21)
[2020-10-31 21:06] LABS: C-Reactive Protein 7.8 mg/dL (0.00-1.30)
[2020-10-31] MEDS ORDERED: oxyCODONE /ACETAMINOPHEN 5-325MG TAB ONE (22:26)
[2020-10-31] MEDS ORDERED: FAMOTIDINE 20 MG TAB ONE (22:28)
[2020-10-31] MEDS ORDERED: HEPARIN 5,000 UNIT/1 ML VIAL ONE (22:28)
[2020-10-31] MEDS ORDERED: methylPREDNISolone Sod Succinate 40 MG/1 ML INJ ONE (22:28)
[2020-10-31] MEDS: methylPREDNISolone Sod Succinate 40 MG/1 ML INJ IV SCH (22:33)
[2020-10-31] MEDS: HEPARIN 5,000 UNIT/1 ML VIAL SUB-Q SCH (22:35)
[2020-10-31] MEDS: FAMOTIDINE 10 MG TAB PO SCH (23:12)
[2020-11-01 05:29] LABS: Hematocrit 32.6 % (30.3-42.9); Hemoglobin 10.9 gm/dl (10.1-14.3); Mean Corpuscular HGB Conc 34 % (30-34); Mean Corpuscular Volume 87 fl (79-97); Platelet Count 273 K/mm3 (140-440); Red Blood Count 3.76 M/mm3 (3.65-5.03); Red Cell Distribution Width 13.8 % (13.2-15.2)
[2020-11-01] MEDS ORDERED: methylPREDNISolone Sod Succinate 40 MG/1 ML INJ ONE ×2 (06:03→16:09)
[2020-11-01] MEDS: methylPREDNISolone Sod Succinate 40 MG/1 ML INJ IV SCH ×3 (06:06→23:10)
[2020-11-01 06:11] LABS: BUN/Creatinine Ratio 18; Blood Urea Nitrogen 11 mg/dL (7-17)
[2020-11-01 06:12] LABS: Alanine Aminotransferase 28 units/L (7-56); Albumin 3.4 g/dL (3.9-5); Calcium 8.6 mg/dL (8.4-10.2); Hemolysis Index 0
[2020-11-01 06:57] LABS: Band Neutrophils # (Manual) 0.1 K/mm3; Basophils % (Manual) 0 % (0.0-1.8); Eosinophils % (Manual) 0 % (0.0-4.3); Platelet Estimate Consistent w Auto; Total Cells Counted 100
[2020-11-01] MEDS ORDERED: cefTRIAXone/NS 2 GM/100 ML 2 GM/100 ML BAG IV ONE ×2 (08:00→10:59)
[2020-11-01] MEDS ORDERED: AZITHROMYCIN 250 MG TAB PO SCH (10:00)
[2020-11-01] MEDS ORDERED: cefTRIAXone/NS 2 GM/100 ML 2 GM/100 ML BAG IV SCH (10:00)
[2020-11-01] MEDS ORDERED: FUROSEMIDE 20 MG TAB ONE (11:00)
[2020-11-01] MEDS ORDERED: HEPARIN 5,000 UNIT/1 ML VIAL ONE (11:00)
[2020-11-01] MEDS ORDERED: amLODIPine 10 MG TAB ONE (11:00)
[2020-11-01] MEDS: FUROSEMIDE 20 MG TAB PO SCH (11:13)
[2020-11-01] MEDS: amLODIPine 10 MG TAB PO SCH (11:20)
--- NOTE | 2020-11-01 11:47 | Progress Note ---
Assessment and Plan -- 2019-nCoV infection: Placed on coronavirus protocol: Coronavirus PCR is positive, Continue contact precautions, isolation precautions, prone positioning while in bed, supplemental oxygen, Started on IV remdesivir therapy, continue po steroid therapy, --COVID-19 pneumonia Follow inflammatory markers ID consult, started on IV remdesivir and p.o. dexamethasone -- Accelerated hypertension Monitor blood pressure every shift, continue medical management. -- Hyponatremia BMP, repeat BMP in a.m., IV fluid resuscitation therapy as clinically indicated. --History of scleroderma, outpatient follow-up --History of brain tumor, patient clinically stable further follow-up outpatient -- DVT prophylaxis SCD to bilateral lower extremities while in bed, prophylactic anticoagulation Brief History: 74 YO Female with HTN, Scleroderma, HLD, Brain Tumor presents to ED for evaluation of feeling "wiped out" over the past 1 week. Pt acknowledges generalized weakness, decreased exercise tolerance, fatigue, weakness, body aches, malaise, loss of sense of smell, loss of sense of taste, and decreased appetite and oral intake over the past 1 week. he patient was found to have a pulse oximetry of 87% on exertion. CXR showed airspace opacity in the left lower lobe characteristic of pneumonia. Patient admitted for further evaluation and management. 11/01: Positive COVID 19 result, cont to follow inflammatory markers. start on remdesivir Subjective Date of service: 11/01/20 Interval history: Patient seen and examined. Medical records and medication list reviewed. No acute event overnight noted by the RN. Patient denies any chest pain or difficulty breathing. Patient is tolerating diet. Discussed plan of care at bedside with patient. Objective - Exam Narrative Exam: General appearance: Present: mild distress - EENT Eyes: Present: PERRL ENT: hearing intact, clear oral mucosa - Neck Neck: Present: supple, normal ROM - Respiratory Respiratory effort: slightly labored, no accessory muscle use Respiratory: bilateral: diminished, rhonchi - Cardiovascular Heart Sounds: Present: S1 & S2. Absent: rub, click - Extremities Extremities: pulses symmetrical, No edema Peripheral Pulses: within normal limits - Abdominal General gastrointestinal: Present: soft, non-tender, non-distended, normal bowel sounds Female genitourinary: Present: normal - Integumentary Integumentary: Present: clear, warm, dry - Musculoskeletal Musculoskeletal: generalized weakness - Psychiatric Psychiatric: appropriate mood/affect, intact judgment & insight - Neurologic Neurologic: CNII-XII intact, moves all extremities - Constitutional Vitals: Vital Signs - 12hr 11/01/20 11/01/20 06:20 10:07 Temperature 98.4 F 98.8 F Pulse Rate 75 90 Respiratory 16 16 Rate Blood Pressure 150/81 123/80 [Right] O2 Sat by Pulse 98 99 Oximetry - Labs CBC & Chem 7: 11/01/20 04:29 11/03/20 10:36 Labs: Abnormal lab results 10/31/20 10/31/20 10/31/20 Range/Units 15:12 15:12 17:38 Lymph % (Auto) 5.9 L (13.4-35.0) % Lymph # (Auto) 0.5 L (1.2-5.4) K/mm3 Seg Neutrophils % 89.6 H (40.0-70.0) % Seg Neuts % (Manual) (40.0-70.0) % Lymphocytes % (Manual) (13.4-35.0) % Lymphocytes # (Manual) (1.2-5.4) K/mm3 D-Dimer (0-234) ng/mlDDU ABG pH 7.461 H (7.350-7.450) pH Units ABG pO2 68.8 L (80.0-90.0) mm Hg ABG O2 Saturation 94.9 L (95.0-99.0) % ABG Hemoglobin 11.7 L (12.0-16.0) gm/dl Oxyhemoglobin 93.8 L (95.0-99.0) % Sodium 135 L (137-145) mmol/L Chloride 97.4 L (98-107) mmol/L Glucose 121 H (65-100) mg/dL Ferritin (10.0-200.0) ng/mL AST 53 H (5-40) units/L Lactate Dehydrogenase (91-180) units/L C-Reactive Protein (0.00-1.30) mg/dL Total Protein 8.8 H (6.3-8.2) g/dL Albumin (3.9-5) g/dL 10/31/20 10/31/20 10/31/20 Range/Units 19:32 19:32 19:32 Lymph % (Auto) (13.4-35.0) % Lymph # (Auto) (1.2-5.4) K/mm3 Seg Neutrophils % (40.0-70.0) % Seg Neuts % (Manual) (40.0-70.0) % Lymphocytes % (Manual) (13.4-35.0) % Lymphocytes # (Manual) (1.2-5.4) K/mm3 D-Dimer 456.87 H (0-234) ng/mlDDU ABG pH (7.350-7.450) pH Units ABG pO2 (80.0-90.0) mm Hg ABG O2 Saturation (95.0-99.0) % ABG Hemoglobin (12.0-16.0) gm/dl Oxyhemoglobin (95.0-99.0) % Sodium (137-145) mmol/L Chloride (98-107) mmol/L Glucose (65-100) mg/dL Ferritin 612.9 H (10.0-200.0) ng/mL AST (5-40) units/L Lactate Dehydrogenase 413 H (91-180) units/L C-Reactive Protein 7.80 H (0.00-1.30) mg/dL Total Protein (6.3-8.2) g/dL Albumin (3.9-5) g/dL 11/01/20 11/01/20 Range/Units 04:29 04:29 Lymph % (Auto) (13.4-35.0) % Lymph # (Auto) (1.2-5.4) K/mm3 Seg Neutrophils % (40.0-70.0) % Seg Neuts % (Manual) 92.0 H (40.0-70.0) % Lymphocytes % (Manual) 5.0 L (13.4-35.0) % Lymphocytes # (Manual) 0.3 L (1.2-5.4) K/mm3 D-Dimer (0-234) ng/mlDDU ABG pH (7.350-7.450) pH Units ABG pO2 (80.0-90.0) mm Hg ABG O2 Saturation (95.0-99.0) % ABG Hemoglobin (12.0-16.0) gm/dl Oxyhemoglobin (95.0-99.0) % Sodium (137-145) mmol/L Chloride (98-107) mmol/L Glucose 169 H (65-100) mg/dL Ferritin (10.0-200.0) ng/mL AST 52 H (5-40) units/L Lactate Dehydrogenase (91-180) units/L C-Reactive Protein (0.00-1.30) mg/dL Total Protein (6.3-8.2) g/dL Albumin 3.4 L (3.9-5) g/dL
[2020-11-01] MEDS ORDERED: AZITHROMYCIN 250 MG TAB ONE (16:06)
[2020-11-01] MEDS ORDERED: SODIUM CHLORIDE 0.9% 50 ML ONE (17:45)
[2020-11-01] MEDS ORDERED: REMDESIVIR 100 MG VIAL IV ONE (18:00)
[2020-11-01] MEDS ORDERED: REMDESIVIR 200 MG in SODIUM CHLORIDE 0.9% 250ML 250 ML IV ONE (18:00)
[2020-11-01] MEDS ORDERED: SODIUM CHLORIDE 0.9% 50 ML IV SCH (18:00)
[2020-11-01] MEDS: FAMOTIDINE 10 MG TAB PO SCH ×2 (23:10→23:12)
[2020-11-01] MEDS: HEPARIN 5,000 UNIT/1 ML VIAL SUB-Q SCH ×2 (23:11→23:12)
[2020-11-02] MEDS ORDERED: diphenhydrAMINE 25 MG CAP PO ONE (03:05)
[2020-11-02] MEDS: methylPREDNISolone Sod Succinate 40 MG/1 ML INJ IV SCH ×3 (05:22→21:32)
[2020-11-02] MEDS: FUROSEMIDE 20 MG TAB PO SCH (10:56)
[2020-11-02] MEDS: FAMOTIDINE 10 MG TAB PO SCH ×2 (10:56→21:33)
[2020-11-02] MEDS: HEPARIN 5,000 UNIT/1 ML VIAL SUB-Q SCH ×2 (10:56→21:32)
[2020-11-02] MEDS: amLODIPine 10 MG TAB PO SCH (10:56)
--- NOTE | 2020-11-02 19:15 | Progress Note ---
Assessment and Plan -- 2019-nCoV infection: Placed on coronavirus protocol: Coronavirus PCR is positive, Continue contact precautions, isolation precautions, prone positioning while in bed, supplemental oxygen, Started on IV remdesivir therapy, continue po steroid therapy, --Acute hypoxic respiratory failure, POA O2 sat was 87% on exertion Today significantly improved, continue to treat for COVID-19 pneumonia --COVID-19 pneumonia Follow inflammatory markers ID consult, started on IV remdesivir and p.o. dexamethasone -- Accelerated hypertension Monitor blood pressure every shift, continue medical management. -- Hyponatremia BMP, repeat BMP in a.m., IV fluid resuscitation therapy as clinically indicated. --History of scleroderma, outpatient follow-up --History of brain tumor, patient clinically stable further follow-up outpatient -- DVT prophylaxis SCD to bilateral lower extremities while in bed, prophylactic anticoagulation Brief History: 74 YO Female with HTN, Scleroderma, HLD, Brain Tumor presents to ED for evaluation of feeling "wiped out" over the past 1 week. Pt acknowledges generalized weakness, decreased exercise tolerance, fatigue, weakness, body aches, malaise, loss of sense of smell, loss of sense of taste, and decreased appetite and oral intake over the past 1 week. The patient was found to have a pulse oximetry of 87% on exertion. CXR showed airspace opacity in the left lower lobe characteristic of pneumonia. Patient admitted for further evaluation and management. 11/01: Positive COVID 19 result, cont to follow inflammatory markers. start on remdesivir Subjective Date of service: 11/02/20 Interval history: Patient seen and examined. Medical records and medication list reviewed. No acute event overnight noted by the RN. Patient denies any chest pain or difficulty breathing. Patient is tolerating diet. Discussed plan of care at bedside with patient. Objective - Exam Narrative Exam: General appearance: Present: no distress - EENT Eyes: Present: PERRL ENT: hearing intact, clear oral mucosa - Neck Neck: Present: supple, normal ROM - Respiratory Respiratory effort: no labored, no accessory muscle use Respiratory: bilateral: diminished, rhonchi - Cardiovascular Heart Sounds: Present: S1 & S2. Absent: rub, click - Extremities Extremities: pulses symmetrical, No edema Peripheral Pulses: within normal limits - Abdominal General gastrointestinal: Present: soft, non-tender, non-distended, normal bowel sounds Female genitourinary: Present: normal - Integumentary Integumentary: Present: clear, warm, dry - Musculoskeletal Musculoskeletal: generalized weakness - Psychiatric Psychiatric: appropriate mood/affect, intact judgment & insight - Neurologic Neurologic: CNII-XII intact, moves all extremities - Constitutional Vitals: Vital Signs - 12hr 11/02/20 11/02/20 11/02/20 10:56 11:40 11:47 Temperature 98.1 F Pulse Rate 77 80 Respiratory 22 Rate Blood Pressure 150/89 153/89 O2 Sat by Pulse 99 96 100 Oximetry - Labs CBC & Chem 7: 11/01/20 04:29 11/03/20 10:36
[2020-11-02] MEDS ORDERED: SODIUM CHLORIDE 0.9% 50 ML IVPB IV SCH (21:00)
[2020-11-02] MEDS ORDERED: REMDESIVIR 100 MG in SODIUM CHLORIDE 0.9% 250ML 250 ML IV SCH (21:00)
[2020-11-03] MEDS ORDERED: diphenhydrAMINE 25 MG CAP PO PRN (02:56)
[2020-11-03] MEDS: methylPREDNISolone Sod Succinate 40 MG/1 ML INJ IV SCH ×2 (05:53→13:46)
[2020-11-03] MEDS: FAMOTIDINE 10 MG TAB PO SCH (09:04)
[2020-11-03] MEDS: FUROSEMIDE 20 MG TAB PO SCH (09:05)
[2020-11-03] MEDS: HEPARIN 5,000 UNIT/1 ML VIAL SUB-Q SCH ×2 (09:05→09:09)
[2020-11-03] MEDS: amLODIPine 10 MG TAB PO SCH (09:05)
[2020-11-03 11:39] LABS: Blood Urea Nitrogen 16 mg/dL (7-17); Calcium 9.2 mg/dL (8.4-10.2); Hemolysis Index 4
[2020-11-03 11:43] LABS: BUN/Creatinine Ratio 23
[2020-11-03] MEDS ORDERED: DEXAMETHASONE 2 MG TAB PO SCH (15:00)
[2020-11-03] MEDS ORDERED: REMDESIVIR 100 MG in SODIUM CHLORIDE 0.9% 250ML 250 ML IV SCH (16:00)
--- NOTE | 2020-11-03 16:18 | Discharge Summary ---
Providers - Providers Date of Admission: 10/31/20 19:19 Date of discharge: 11/03/20 Attending physician: VIRGILIO ANDERSON 11/03/20 14:41 Consult to Physician [CONS] Routine Comment: Consulting Provider: MARY BETH GONZALEZ Physician Instructions: Reason For Exam: COVID PNA Primary care physician: [employer] Hospitalization Condition: Fair Pertinent studies: CXR Hospital course: Brief History: 74 YO Female with HTN, Scleroderma, HLD, Brain Tumor presents to ED for evaluation of feeling "wiped out" over the past 1 week. Pt acknowledges generalized weakness, decreased exercise tolerance, fatigue, weakness, body aches, malaise, loss of sense of smell, loss of sense of taste, and decreased appetite and oral intake over the past 1 week. The patient was found to have a pulse oximetry of 87% on exertion. CXR showed airspace opacity in the left lower lobe characteristic of pneumonia. Patient admitted for further evaluation and management. Discharge diagnosis: -- 2019-nCoV infection: Placed on coronavirus protocol: Coronavirus PCR is positive, Continue contact precautions, isolation precautions, prone positioning while in bed, supplemental oxygen, Started on IV remdesivir therapy, continue po steroid therapy, --Acute hypoxic respiratory failure, POA O2 sat was 87% on exertion Today significantly improved, continue to treat for COVID-19 pneumonia --COVID-19 pneumonia Follow inflammatory markers ID consult, started on IV remdesivir and p.o. dexamethasone. -- Accelerated hypertension Monitor blood pressure every shift, continue medical management. -- Hyponatremia BMP, repeat BMP in a.m., IV fluid resuscitation therapy as clinically indicated. --History of scleroderma, outpatient follow-up --History of brain tumor, patient clinically stable further follow-up outpatient -- DVT prophylaxis SCD to bilateral lower extremities while in bed, prophylactic anticoagulation Disposition: TO HOME OR SELFCARE Time spent for discharge: 34 minutes Core Measure Documentation - Palliative Care Palliative Care/ Comfort Measures: Not Applicable - Core Measures Any of the following diagnoses?: none Exam - Physical Exam Narrative exam: General appearance: Present: no distress - EENT Eyes: Present: PERRL ENT: hearing intact, clear oral mucosa - Neck Neck: Present: supple, normal ROM - Respiratory Respiratory effort: no labored, no accessory muscle use Respiratory: bilateral: diminished, rhonchi - Cardiovascular Heart Sounds: Present: S1 & S2. Absent: rub, click - Extremities Extremities: pulses symmetrical, No edema Peripheral Pulses: within normal limits - Abdominal General gastrointestinal: Present: soft, non-tender, non-distended, normal bowel sounds Female genitourinary: Present: normal - Integumentary Integumentary: Present: clear, warm, dry - Musculoskeletal Musculoskeletal: generalized weakness - Psychiatric Psychiatric: appropriate mood/affect, intact judgment & insight - Neurologic Neurologic: CNII-XII intact, moves all extremities - Constitutional Vitals: Temp Pulse Resp BP Pulse Ox 98.2 F 67 20 152/82 98 11/03/20 05:44 11/03/20 05:44 11/03/20 05:44 11/03/20 05:44 11/03/20 10:00 Plan Activity: advance as tolerated Weight Bearing Status: Weight Bear as Tolerated Diet: low fat, low salt Follow up with: PRIMARY CAREMD [Primary Care Provider] - 3-5 Days HEATHER FULTON MD [Staff Physician] - 7 Days Prescriptions: dexAMETHasone [Decadron] 6 mg PO Q24HR #8 tablet
--- NOTE | 2020-11-03 16:44 | Consultation ---
History of Present Illness - Reason for Consult Consult date: 11/03/20 - History of Present Illness 74-year-old female past medical history hypertension, scleroderma, brain tumor present to the hospital complaining of 1 week of fatigue. She notes an associated weakness myalgias, anosmia, dysgeusia, and her symptoms were progressive the last 4 days. EMS was called and she was found to be hypoxic on exertion to 87%. Afebrile on admission, currently receiving dexamethasone. White count is 5.7. Covid testing positive with a positive antibody. Procalcitonin slightly elevated at 0.4. Blood cultures currently pending. Imaging personally viewed: Chest x-ray: Left lower lobe airspace opacity Review of Systems: Bold if positive, otherwise negative General: fevers, chills, rigors, fatigue HEENT: visual disturbance, diplopia, eye pain Respiratory: cough, sputum, hemoptysis, shortness of breath Cardiovascular: chest pain, syncope Gastrointestinal: nausea, vomiting, diarrhea, abdominal pain Genitourinary: dysuria, hematuria, flank pain Musculoskeletal: neck pain, back pain, joint pain, edema Neurologic: headaches, seizures Hematologic: easy bruising or bleeding Endocrine: night sweats, acute weight loss Skin: rash, jaundice, redness Psychiatric: suicidal, homicidal ideation Past History Past Medical History: hypertension, hyperlipidemia, other (See HPI) Past Surgical History: appendectomy, hysterectomy, Other (Tubal ligation, bladder suspension) Social history: . denies: smoking, alcohol abuse, prescription drug abuse Family history: diabetes, hypertension Medications and Allergies Allergies Allergy/AdvReac Type Severity Reaction Status Date / Time Sulfa (Sulfonamide Allergy Hives Verified 10/31/17 10:46 Antibiotics) Home Medications Medication Instructions Recorded Confirmed Last Taken Type oxyCODONE /ACETAMINOPHEN [Percocet 1 tab PO QHS PRN #7 tablet 11/01/17 11/02/20 Unknown Rx 5/325 mg] amLODIPine 10 mg PO DAILY #30 tab 11/24/18 11/02/20 Unknown Rx Furosemide [Lasix TAB] 20 mg PO QDAY #10 tablet 04/11/19 11/02/20 Unknown Rx Albuterol Mdi (or & Nicu Only) 2 puff IH QID PRN #8.5 gram 11/03/20 Unknown Rx [ProAir HFA Inhaler] dexAMETHasone [Decadron] 6 mg PO Q24HR #8 tablet 11/03/20 Unknown Rx Active Meds: Active Medications Albuterol (Proventil) 2.5 mg IH Q4HRT PRN PRN Reason: Shortness Of Breath Amlodipine Besylate (Amlodipine) 10 mg PO DAILY [facility] Last Admin: 11/03/20 09:05 Dose: 10 mg Documented by: Dexamethasone (Decadron) 6 mg PO Q24HR [facility] Stop: 11/09/20 10:59 Diphenhydramine HCl (Benadryl) 50 mg PO Q6H PRN PRN Reason: Itching Last Admin: 11/03/20 03:27 Dose: 50 mg Documented by: Famotidine (Pepcid) 10 mg PO BID [facility] Last Admin: 11/03/20 09:04 Dose: 10 mg Documented by: Furosemide (Lasix) 20 mg PO QDAY [facility] Last Admin: 11/03/20 09:05 Dose: 20 mg Documented by: Heparin Sodium (Porcine) (Heparin) 5,000 unit SUB-Q Q12HR [facility] Last Admin: 11/03/20 09:09 Dose: Not Given Documented by: Ondansetron HCl (Zofran) 4 mg IV Q8H PRN PRN Reason: Nausea And Vomiting Oxycodone/Acetaminophen (Percocet 5/325) 1 tab PO QHS PRN PRN Reason: PAIN Last Admin: 10/31/20 22:32 Dose: 1 tab Documented by: Sodium Chloride (Sodium Chloride Flush Syringe 10 Ml) 10 ml IV BID [facility] Last Admin: 11/03/20 09:05 Dose: 10 ml Documented by: Sodium Chloride (Sodium Chloride Flush Syringe 10 Ml) 10 ml IV PRN PRN PRN Reason: LINE FLUSH Sodium Chloride (Nacl 0.9%) 50 ml IV Q24HR@2100 [facility] Stop: 11/05/20 21:01 Last Admin: 11/02/20 21:32 Dose: 50 ml Documented by: Physical Examination - Physical Exam Narrative exam: Physical exam deferred due to PPE conservation strategy. Please refer to primary team's note. - Constitutional Vitals: Vital Signs Temp Pulse Resp BP Pulse Ox 98.2 F 67 20 152/82 98 11/03/20 05:44 11/03/20 05:44 11/03/20 05:44 11/03/20 05:44 11/03/20 10:00 Temperature -Last 24 Hours Temperature 98.2 F Temperature 98.8 F Temperature 98.6 F Results - Labs CBC & Chem 7: 11/01/20 04:29 11/03/20 10:36 Labs: Abnormal lab results 11/03/20 11/03/20 11/03/20 Range/Units 10:36 10:36 10:36 D-Dimer 435.21 H (0-234) ng/mlDDU Glucose 206 H (65-100) mg/dL Ferritin 570.1 H (10.0-200.0) ng/mL Lactate Dehydrogenase 331 H (91-180) units/L C-Reactive Protein 1.70 H (0.00-1.30) mg/dL Assessment and Plan Cultures: Blood culture pending A/P: 74-year-old female past medical history hypertension, scleroderma, brain tumor #Severe COVID-19 pneumonia: Patient presented with a week of symptoms, chest x- ray with diffuse bilateral infiltrates, admission O2 sats 87% on room air #Acute hypoxemic respiratory failure: Likely secondary to COVID-19 infection. Currently on room air #Brain tumor #Scleroderma Recs: -Patient does not require submental oxygen at this time, not a candidate for remdesivir -Otherwise patient looks well, discussed with Dr. House, patient okay to discharge from infectious perspective Thank you for the consult, we will continue to follow. Clotilde Robles MD [facility] O: [phone] F: [phone]
[2020-11-03 23:02] VITALS: BP 163/93
[2020-11-04] MEDS ORDERED: DEXAMETHASONE 2 MG TAB PO SCH (10:00)
== END 2020-11-03 21:15 | disposition home or self-care (01) | DRG 177 ==
LOC: ED 10:51 → 3A 19:19
PROVIDERS: ADMIT Internal Medicine; ATTEND Internal Medicine
PROC: XW033E5 Introduction of Remdesivir Anti-infective into Peripheral Vein, Percutaneous Approach, New Technology Group 5 (ICD-10-PCS; principal; 2020-11-01)
DX: U07.1 COVID-19 (principal); J96.00 Acute respiratory failure, unspecified whether with hypoxia or hypercapnia; J12.89 Other viral pneumonia; E87.1 Hypo-osmolality and hyponatremia; M34.9 Systemic sclerosis, unspecified; G51.0 Bell's palsy; E78.5 Hyperlipidemia, unspecified; I10 Essential (primary) hypertension; E78.00 Pure hypercholesterolemia, unspecified; Z90.710 Acquired absence of both cervix and uterus; Z98.51 Tubal ligation status; Z79.899 Other long term (current) drug therapy; Z79.891 Long term (current) use of opiate analgesic; Z90.49 Acquired absence of other specified parts of digestive tract; Z63.4 Disappearance and death of family member; Z88.5 Allergy status to narcotic agent; Z88.2 Allergy status to sulfonamides
CPT/HCPCS: 36415; 71046; 80048; 80053; 81001; 82140; 82728; 82803; 82947; 83615; 84145; 85007; 85025; 85379; 86140; 86850; 86900; 86901; 87040; 93005; 94760; G0378; J0456; J0696; J1644; J2920; J7030; J7050; U0003